=== PATIENT | male | born 1940 | race Caucasian/White ===

== ENCOUNTER 2021-09-15 09:50 | Emergency (ER) | payer BC, OTHER ==
--- OUTSIDE RECORDS SUMMARY | 2021-09-15 09:53 | XMS REPORT | Continuity of Care Document ---
:1940 Author Organization [facility] t Address [address] [place] [address] Care Team Providers Name Role Phone Sarai DEAN, H Attending Clinician Lab, Fam Pob I Attending Clinician Unavailable Bettye [employer]PER[employer] Attending Clinician BETTYE Attending Clinician Unavailable Doctor Unassigned, Name Attending Clinician Unavailable Payers Payer Name Policy Type Policy Number Effective Date Expiration Date S ource MEDICARE A B [id number] 2004 00:00:00 Problems Condition Condition Condition Status Onset Resolution Last Treating Co mments Source Name Details Category Date Date Treatment Clinician Date Influenza Influenza Disease Active Uni vers 1-30 ity of 00:00: [place] [address] Medical Branch Acute Acute Disease Active Univers respirator respirator 1-30 it y of y failure y failure 00:00: Farzaneh s with with 00 Medical hypoxia hypoxia Branch Shortness Shortness Disease Active Uni vers of breath of breath 1-25 ity of 00:00: [place] 00 Medical Branch S/P hip S/P hip Disease Active Univers hemiarthro hemiarthro 1-02 it y of plasty plasty 00:00: [place] 00 [facility] Branch Anemia, Anemia, Disease Active 2015-10 Univers posthemorr posthemorr 1-27 it y of ranjan wood[place], 00:00: [place] acute acute 00 [facility] Branch Urinary Urinary Disease Active 2015-10 Univers retention retention -27 ity of 00:00: [place] 00 Medical Branch Sundowning Sundowning Disease Active 2015-10 U nivers -27 ity of 00:00: [place] 00 [facility] Branch Hip Hip Disease Active 2015-10 Univers fracture fracture 1-18 ity of 00:00: [place] 00 [facility] Branch Allergies, Adverse Reactions, Alerts Allergy Allergy Status Severity Reaction(s) Onset Inactive Treating Comm ents Source Name Type Date Date Clinician NO KNOWN Drug Active Univers ALLERGIE Class ity of S [facility] Social History Social Habit Start Date Stop Date Quantity Comments Source Alcohol intake 2016-09-18 2016-09-18 [facility] 00:00:00 00:00:00 Medical Branch Sex [facility]igned At [birth year] [facility] 00:[facility]:00 00:00:00 Medical Branch Smoking Status Start Date Stop Date Source Current every day [facility] Ordered Filled Start Stop Current Ordering Indication Dosage Frequency Signature Comments Components Source Medication Medication Date Date Medication? Clinician (SIG) Name Name lisinopril Yes [id number] 10mg Take 2 Univers 5 mg tablet 1-30 tablets by it y of 00:00: mouth 2 [place] (two) Medical times [place] daily. fluticasone Yes [id number] 1{spray Use 1 Univers 50 1-30 } [place] in ity of mcg/actuati 00:00: each [place] on nasal 00 nostril Medical spray daily. Branch fluticasone Yes [id number] 2{puff} Inhale 2 Univers -salmeterol 1-30 Puffs 2 ity o f 115-21 00:00: (two) [place] mcg/actuati 00 times Medical on inhaler daily. Branch lisinopril Yes [id number] 10mg Take 2 Univers 5 mg tablet 1-30 tablets by it y of 00:00: mouth 2 [place] (two) Medical times Branch daily. fluticasone Yes [id number] 1{spray Use 1 Univers 50 1-30 } [place] in ity of mcg/actuati 00:00: each [place] on nasal 00 nostril Medical spray daily. Branch fluticasone Yes [id number] 2{puff} Inhale 2 Univers -salmeterol 1-30 Puffs 2 ity o f 115-21 00:00: (two) [place] mcg/actuati 00 times Medical on inhaler daily. Branch lisinopril Yes [id number] 10mg Take 2 Univers 5 mg tablet 1-30 tablets by it y of 00:00: mouth 2 [place] (two) Medical times [place] daily. fluticasone Yes [id number] 1{spray Use 1 Univers 50 1-30 } [place] in ity of mcg/actuati 00:00: each [place] on nasal 00 nostril Medical spray daily. Branch fluticasone Yes [id number] 2{puff} Inhale 2 Univers -salmeterol 1-30 Puffs 2 ity o f 115-21 00:00: (two) [place] mcg/actuati 00 times Medical on inhaler daily. [place] lisinopril Yes [id number] 10mg Take 2 Univers 5 mg tablet 1-30 tablets by it y of 00:00: mouth 2 [place] (two) Medical times [place] daily. fluticasone Yes [id number] 1{spray Use 1 Univers 50 1-30 } [place] in ity of mcg/actuati 00:00: each [place] on nasal 00 nostril Medical spray daily. [place] fluticasone Yes [id number] 2{puff} Inhale 2 Univers -salmeterol 1-30 Puffs 2 ity o f 115-21 00:00: (two) [place] mcg/actuati 00 times Medical on inhaler daily. [place] albuterol Yes [id number] 2{puff} Inhale 2 Univers (PROAIR 1-26 Puffs ity of HFA) 90 00:00: every 6 [place] mcg/actuati 00 (six) Medical on inhaler hours as Branc h needed for Wheezing or Shortness of Breath. albuterol Yes [id number] 2{puff} Inhale 2 Univers (PROAIR 1-26 Puffs ity of HFA) 90 00:00: every 6 [place] mcg/actuati 00 (six) Medical on inhaler hours as Branc h needed for Wheezing or Shortness of Breath. albuterol Yes [id number] 2{puff} Inhale 2 Univers (PROAIR 1-26 Puffs ity of HFA) 90 00:00: every 6 [place] mcg/actuati 00 (six) Medical on inhaler hours as Branc h needed for Wheezing or Shortness of Breath. albuterol Yes [id number] 2{puff} Inhale 2 Univers (PROAIR 1-26 Puffs ity of HFA) 90 00:00: every 6 [place] mcg/actuati 00 (six) Medical on inhaler hours as Branc h needed for Wheezing or Shortness of Breath. traMADOL Yes 50mg Take 1 Univers (ULTRAM) 50 4-14 tablet by ity of mg tablet 00:00: mouth [place] 00 every 6 Medical (six) Branch hours as needed for Pain (scale 4-6). traMADOL Yes 50mg Take 1 Univers (ULTRAM) 50 4-14 tablet by ity of mg tablet 00:00: mouth [place] 00 every 6 Medical (six) Branch hours as needed for Pain (scale 4-6). traMADOL 0 Yes 50mg Take 1 Univers (ULTRAM) 50 4-14 tablet by ity of mg tablet 00:00: mouth [place] 00 every 6 Medical (six) Branch hours as needed for Pain (scale 4-6). traMADOL Yes 50mg Take 1 Univers (ULTRAM) 50 4-14 tablet by ity of mg tablet 00:00: mouth [place] 00 every 6 Medical (six) Branch hours as needed for Pain (scale 4-6). bisacodyl 2015-10 Yes 10mg Take 2 Univer s (DULCOLAX) 1-28 tablets by ity of 5 mg EC 00:00: mouth once [place] tablet 00 daily as Medical needed for Branch Constipati on. docusate 2015-10 Yes 100mg Take 1 Univer s (COLACE) 1-28 capsule by ity o f 100 mg 00:00: mouth 2 [place] capsule 00 (two) Medical times Branch daily. clopidogrel 2015-10 Yes 75mg Take 1 Univ ers (PLAVIX) 75 1-28 tablet by ity of mg tablet 00:00: mouth [place] 00 daily. Medical Branch SERTraline 2015-10 Yes 25mg Take 1 Unive rs (ZOLOFT) 25 1-28 tablet by ity of mg tablet 00:00: mouth [place] 00 daily. Medical Branch aspirin 81 2015-10 Yes 81mg Take 1 Unive rs mg chewable 1-28 tablet by ity of tablet 00:00: mouth [place] 00 daily. Medical Branch acetaminoph 2015-10 Yes 650mg Take 2 Uni vers en 1-28 tablets by ity of (TYLENOL) 00:00: mouth [place] 325 mg 00 every 6 Medical tablet (six) Branch hours as needed for Pain (scale 1-3). atorvastati 2015-10 Yes 20mg Take 1 Univ ers n (LIPITOR) 1-28 tablet by ity of 20 mg 00:00: mouth at [place] tablet 00 bedtime. Medical Branch bisacodyl 2015-10 Yes 10mg Take 2 Univer s (DULCOLAX) 1-28 tablets by ity of 5 mg EC 00:00: mouth once [place] tablet 00 daily as Medical needed for Branch Constipati on. docusate 2015-10 Yes 100mg Take 1 Univer s (COLACE) 1-28 capsule by ity o f 100 mg 00:00: mouth 2 [place] capsule 00 (two) Medical times Branch daily. clopidogrel 2015-10 Yes 75mg Take 1 Univ ers (PLAVIX) 75 1-28 tablet by ity of mg tablet 00:00: mouth [place] 00 daily. Medical Branch SERTraline 2015-10 Yes 25mg Take 1 Unive rs (ZOLOFT) 25 1-28 tablet by ity of mg tablet 00:00: mouth [place] 00 daily. Medical Branch aspirin 81 2015-10 Yes 81mg Take 1 Unive rs mg chewable 1-28 tablet by ity of tablet 00:00: mouth [place] 00 daily. Medical Branch acetaminoph 2015-10 Yes 650mg Take 2 Uni vers en 1-28 tablets by ity of (TYLENOL) 00:00: mouth [place] 325 mg 00 every 6 Medical tablet (six) Branch hours as needed for Pain (scale 1-3). atorvastati 2015-10 Yes 20mg Take 1 Univ ers n (LIPITOR) 1-28 tablet by ity of 20 mg 00:00: mouth at [place] tablet 00 bedtime. Medical Branch bisacodyl 2015-10 Yes 10mg Take 2 Univer s (DULCOLAX) 1-28 tablets by ity of 5 mg EC 00:00: mouth once [place] tablet 00 daily as Medical needed for Branch Constipati on. docusate 2015-10 Yes 100mg Take 1 Univer s (COLACE) 1-28 capsule by ity o f 100 mg 00:00: mouth 2 [place] capsule 00 (two) Medical times Branch daily. clopidogrel 2015-10 Yes 75mg Take 1 Univ ers (PLAVIX) 75 1-28 tablet by ity of mg tablet 00:00: mouth [place] 00 daily. Medical Branch SERTraline 2015-10 Yes 25mg Take 1 Unive rs (ZOLOFT) 25 1-28 tablet by ity of mg tablet 00:00: mouth [place] 00 daily. Medical Branch aspirin 81 2015-10 Yes 81mg Take 1 Unive rs mg chewable 1-28 tablet by ity of tablet 00:00: mouth [place] 00 daily. Medical Branch acetaminoph 2015-10 Yes 650mg Take 2 Uni vers en 1-28 tablets by ity of (TYLENOL) 00:00: mouth [place] 325 mg 00 every 6 Medical tablet (six) Branch hours as needed for Pain (scale 1-3). atorvastati 2015-10 Yes 20mg Take 1 Univ ers n (LIPITOR) 1-28 tablet by ity of 20 mg 00:00: mouth at [place] tablet 00 bedtime. Medical Branch bisacodyl 2015-10 Yes 10mg Take 2 Univer s (DULCOLAX) 1-28 tablets by ity of 5 mg EC 00:00: mouth once [place] tablet 00 daily as Medical needed for Branch Constipati on. docusate 2015-10 Yes 100mg Take 1 Univer s (COLACE) 1-28 capsule by ity o f 100 mg 00:00: mouth 2 [place] capsule 00 (two) Medical times Branch daily. clopidogrel 2015-10 Yes 75mg Take 1 Univ ers (PLAVIX) 75 1-28 tablet by ity of mg tablet 00:00: mouth [place] 00 daily. Medical Branch SERTraline 2015-10 Yes 25mg Take 1 Unive rs (ZOLOFT) 25 1-28 tablet by ity of mg tablet 00:00: mouth [place] 00 daily. Medical Branch aspirin 81 2015-10 Yes 81mg Take 1 Unive rs mg chewable 1-28 tablet by ity of tablet 00:00: mouth [place] 00 daily. Medical Branch acetaminoph 2015-10 Yes 650mg Take 2 Uni vers en 1-28 tablets by ity of (TYLENOL) 00:00: mouth [place] 325 mg 00 every 6 Medical tablet (six) Branch hours as needed for Pain (scale 1-3). atorvastati 2015-10 Yes 20mg Take 1 Univ ers n (LIPITOR) 1-28 tablet by ity of 20 mg 00:00: mouth at [place] tablet 00 bedtime. Medical Branch Procedures This patient has no known procedures. Encounters Start End Encounter Admission Attending Care Care Encounter Source Date/Time Date/Time Type Type Clinicians Facility Department ID 2021-09-[address] [facility] Orthopedics [id number] 02:50:15 [facility] 2021-06-09 2021-06-09 Vinicius Moon [facility] [id number] Univers 00:00:00 00:00:00 (Out) Aubrey Coffman [id number] i ty of [facility] [id number] [place] [phone] [address] [employer] 2021-06-08 2021-06-08 Laboratory Lab, Adc Fam Pob I [facility] [id number] Univers 09:24:45 09:44:45 [facility] [id number] ity of [place] [id number] [place] as Professio [phone] [address] 2021-06-08 2021-06-08 Outpatient R [facility] [id number] Univers 09:20:00 09:20:00 [id number] ity of [facility] 2021-06-08 2021-06-08 Outpatient R BETTYE [facility] [id number] Univers 09:20:00 09:20:00 PRICILLA ity o f [facility] 2021-06-08 2021-06-08 Letter Doctor ADHIKARI [id number] Univers 00:00:00 00:00:00 (Out) Unassigned, FRANCOISE [id number] ity of [facility] [id number] [place] as [phone] [place] [address] Branch 2021-06-08 2021-06-08 Letter Doctor ADHIKARI [id number] Univers 00:00:00 00:00:00 (Out) Unassigned, FRANCOISE [id number] ity of [facility] [id number] [place] as [phone] [address] Results This patient has no known results.
[2021-09-15] MEDS ORDERED: HYDROCODONE/APAP 7.5/325 MG TAB ONE ×2 (10:05→12:22)
--- NOTE | 2021-09-15 11:04 | EDPHYS ---
Physician Documentation [facility] Name: Rahat [place] Age: 81 yrs Sex: Male : 1940 Arrival Date: 09/15/2021 Time: 09:52 Bed 20 Private MD: ED Physician Javier Robins HPI: 09/15 10:52 This 81 yrs old Male presents to ER via EMS with complaints of Arm pain. jr8 10:52 This is an 81-year-old male patient that presented to the emergency room via EMS after jr8 [place]. [place] cruise [place] and had imaging done confirming that he did have a proximal humeral fracture. Was splinted at that time and flown back to [place]. Patient came to emergency room today for further evaluation.. Historical: - Allergies: 10:45 No Known Allergies; sl2 - PMHx: 10:45 Anxiety; CVA; Depression; Hyperlipidemia; sl2 - Immunization history:: Adult Immunizations up to date, Client reports receiving the 2nd dose of the Covid vaccine. - Social history:: Smoking status: Patient reports the use of cigarette tobacco products, smokes one-half pack cigarettes per day. ROS: 10:52 Eyes: Negative for injury, pain, redness, and discharge, ENT: Negative for injury, jr8 pain, and discharge, Neck: Negative for injury, pain, and swelling, Cardiovascular: Negative for chest pain, palpitations, and edema, Respiratory: Negative for shortness of breath, cough, wheezing, and pleuritic chest pain, Abdomen/GI: Negative for abdominal pain, nausea, vomiting, diarrhea, and constipation, Back: Negative for injury and pain, Skin: Negative for injury, rash, and discoloration, Neuro: Negative for headache, weakness, numbness, tingling, and seizure. 10:52 MS/extremity: Positive for decreased range of motion, pain, tenderness, of the left arm. Exam: 10:52 Constitutional: This is a well developed, well nourished patient who is awake, alert, jr8 and in no acute distress. Head/Face: Normocephalic, atraumatic. Neck: Trachea midline, no thyromegaly or masses palpated, and no cervical lymphadenopathy. Supple, full range of motion without nuchal rigidity, or vertebral point tenderness. No Meningismus. Chest/axilla: Normal chest wall appearance and motion. Nontender with no deformity. No lesions are appreciated. Cardiovascular: Regular rate and rhythm with a normal S1 and S2. No gallops, murmurs, or rubs. Normal PMI, no JVD. No pulse deficits. Respiratory: Lungs have equal breath sounds bilaterally, clear to auscultation and percussion. No rales, rhonchi or wheezes noted. No increased work of breathing, no retractions or nasal flaring. Abdomen/GI: Soft, non-tender, with normal bowel sounds. No distension or tympany. No guarding or rebound. No evidence of tenderness throughout. Back: No spinal tenderness. No costovertebral tenderness. Full range of motion. Skin: Warm, dry with normal turgor. Normal color with no rashes, no lesions, and no evidence of cellulitis. Neuro: Awake and alert, GCS 15, oriented to person, place, time, and situation. Cranial nerves II-XII grossly intact. Motor strength 5/5 in all extremities. Sensory grossly intact. 10:52 Musculoskeletal/extremity: Extremities: grossly normal except: noted in the left arm: She has moderate tenderness to the proximal humeral region without obvious deformity. No other external signs of trauma. Patient remains in a coaptation splint. Patient is able to dorsiflex wrist and squeeze with his left hand. Sensation intact throughout with 2+ radial pulses on affected extremity.. Vital Signs: 09:46 BP 137 / 64; Pulse 74; Resp 18; Temp 98.1; Pulse Ox 88% on R/A; sl2 11:00 BP 128 / 76; Pulse 75; Resp 18; Temp 98.1; Pulse Ox 91% on 2 lpm NC; sl2 12:00 BP 128 / 66; Pulse 76; Resp 18; Temp 98.2; Pulse Ox 94% on 2 lpm NC; sl2 MDM: 09:55 Patient medically screened. jr8 10:52 Data reviewed: vital signs, nurses notes, radiologic studies, plain films. Data jr8 interpreted: Pulse oximetry: on 2L(s) per nasal canula, is 96 %. Interpretation: acceptable. Counseling: I had a detailed discussion with the patient and/or guardian regarding: the historical points, exam findings, and any diagnostic results supporting the discharge/admit diagnosis, radiology results, the need for outpatient follow up, a orthopedic surgeon, to return to the emergency department if symptoms worsen or persist or if there are any questions or concerns that arise at home. ED course: Discussed with patient that he needs to remain in the coaptation splint. No focal deficits neurologically at this time to indicate need for reduction or immediate surgery. Will refer him to orthopedics for further evaluation. Patient good with this at this time. Patient knows to come back if he were to worsen at any point time.. 09/15 10:02 Order name: XRAY Shoulder LEFT 2 view; Complete Time: 11:23 jr8 Administered Medications: 10:09 Drug: [place] (HYDROcodone-acetaminophen) (7.5 mg-325 mg) 1 tabs Route: PO; sl2 11:15 Follow up: Response: No adverse reaction; Pain is decreased sl2 12:30 Drug: [place] (HYDROcodone-acetaminophen) (7.5 mg-325 mg) 1 tabs Route: PO; sl2 12:32 Follow up: Response: No adverse reaction sl2 Disposition: 17:24 Co-signature as Attending Physician, Javier Robins MD I agree with the assessment and kdr plan of care. Disposition Summary: 09/15/21 11:03 Discharge Ordered Location: Home jr Problem: new jr8 Symptoms: have improved jr8 Condition: Stable jr8 Diagnosis - Fracture of upper end of humerus jr8 Followup: jr8 - With: Олег Contreras MD - When: 2 - 3 days - Reason: Recheck today's complaints, Continuance of care, Re-evaluation by your physician Discharge Instructions: - Discharge Summary Sheet jr8 - Humerus Fracture Treated With Immobilization jr8 Forms: - Medication Reconciliation Form jr8 - Thank You Letter jr8 - SBAR form em1 - Antibiotic Education jr8 - Prescription Opioid Use jr8 Prescriptions: - Tylenol-Codeine #3 300 mg-30 mg Oral - take 2 tablet by ORAL route every 8 hours As needed; 20 tablet; Refills: 0, jr8 Product Selection Permitted Signatures: Dispatcher [employer] EDMS Javier Robins MD MD kdr Roszak, Josh, PA PA jr8 Roxanna Rodriguez RN RN sl2 Corrections: (The following items were deleted from the chart) 11:11 10:45 Immunization history: Adult Immunizations up to date, Client reports receiving sl2 the 2nd dose of the Covid vaccine, sl2 10:45 Social history: Smoking status: Patient reports the use of cigarette tobacco sl2 products, smokes one-half pack cigarettes per day, sl2
--- NOTE | 2021-09-15 11:04 | ER ---
Nurse's Notes [facility] Name: Rahat Montana Age: 81 yrs Sex: Male : 1940 Arrival Date: 09/15/2021 Time: 09:52 Bed 20 Private MD: Diagnosis: Fracture of upper end of humerus Presentation: 09/15 09:46 Chief complaint: Patient states: Left arm fracture - Patient presented to ED via [address] [facility]. Report received that patient fell from his motorized wheel chair unto his left arm On Sunday on Sunday09/11/21 while on [place] cruise ship. Patient arrived home last PM, c/o severe left arm pain. Sling in place. Presents to ED for evaluation and orthopedic referral. 09:46 Coronavirus screen: Vaccine status: Patient reports receiving the 2nd dose of the covid sl2 vaccine. Ebola Screen: Patient negative for fever greater than or equal to 101.5 degrees Fahrenheit, and additional compatible Ebola Virus Disease symptoms Patient denies exposure to infectious person. Patient denies travel to an Ebola-affected area in the 21 days before illness onset. No symptoms or risks identified at this time. Initial Sepsis Screen: Does the patient meet any 2 criteria? No. Patient's initial sepsis screen is negative. Does the patient have a suspected source of infection? No. Patient's initial sepsis screen is negative. Risk Assessment: Do you want to hurt yourself or someone else? Patient reports no desire to harm self or others. Onset of symptoms was September 11, 2001. 09:46 Method Of Arrival: EMS: [place] [id number] 09:46 Acuity: RACHAEL 2 2 Triage Assessment: 10:45 General: Appears uncomfortable, unkempt, Behavior is calm, cooperative, appropriate for [facility] age, Reports Left arm pain. Pain: Complains of pain in left arm Pain currently is 8 out of 10 on a pain scale. at worst was 10 out of 10 on a pain scale. level that patient reports is acceptable is 3 out of 10 on a pain scale. Quality of pain is described as aching, sharp, piercing, Pain began suddenly, 4 days ago Alleviated by medications, Aggravated by increased activity, repositioning. EENT: No deficits noted. No signs and/or symptoms were reported regarding the EENT system. Neuro: No deficits noted. Level of Consciousness is awake, alert, obeys commands, Oriented to person, place, time, situation, Appropriate for age. Cardiovascular: No deficits noted. Reports. Respiratory: No deficits noted. Reports Airway is patent Trachea midline Respiratory effort is even, unlabored, Respiratory pattern is regular, symmetrical. GI: No deficits noted. No signs and/or symptoms were reported involving the gastrointestinal system. : No deficits noted. No signs and/or symptoms were reported regarding the genitourinary system. Derm: No deficits noted. No signs and/or symptoms reported regarding the dermatologic system. Musculoskeletal: Reports pain in left arm. Historical: - Allergies: 10:45 No Known Allergies; sl2 - PMHx: 10:45 Anxiety; CVA; Depression; Hyperlipidemia; sl2 - Immunization history:: Adult Immunizations up to date, Client reports receiving the 2nd dose of the Covid vaccine. - Social history:: Smoking status: Patient reports the use of cigarette tobacco products, smokes one-half pack cigarettes per day. Screenin:45 Abuse screen: Denies threats or abuse. Denies injuries from another. sl2 10:45 Nutritional screening: No deficits noted. Tuberculosis screening: No symptoms or risk sl2 factors identified. Never had TB. Possible symptoms: None Risk factors: None. Fall Risk None identified. No fall in past 12 months (0 pts). Secondary diagnosis (15 points) impaired mobility, CVA, No IV (0 pts). Ambulatory Aid- Crutches/Cane/Walker (15 pts). Gait- Impaired (20 pts.). Mental Status- Oriented to own ability (0 pts). Total Cherry Fall Scale indicates High Risk Score (45 or more points). 10:45 Fall Risk Total Cherry Fall Scale indicates High Risk Score (45 or more points). Fall sl2 prevention measures have been instituted. Side Rails Up X 2 Placed Close to Nursing Station Frequent Obs/Assessments Occuring. Vital Signs: 09:46 BP 137 / 64; Pulse 74; Resp 18; Temp 98.1; Pulse Ox 88% on R/A; sl2 11:00 BP 128 / 76; Pulse 75; Resp 18; Temp 98.1; Pulse Ox 91% on 2 lpm NC; sl2 12:00 BP 128 / 66; Pulse 76; Resp 18; Temp 98.2; Pulse Ox 94% on 2 lpm NC; sl2 ED Course: 09:52 Patient arrived in ED. em1 09:55 Carlos Oleary PA is PHCP. jr8 09:55 Javier Robins MD is Attending Physician. jr8 10:09 Roxanna Rodriguez, RN is Primary Nurse. sl2 10:45 Triage completed. sl2 10:45 Arm band placed on right wrist. sl2 10:45 Patient has correct armband on for positive identification. Bed in low position. Call sl2 light in reach. Side rails up X2. 10:45 No provider procedures requiring assistance completed. Patient did not have IV access sl2 during this emergency room visit. 10:56 XRAY Shoulder LEFT 2 view In Process Unspecified. EDMS 11:03 Олег Contreras MD is Referral Physician. jr8 Administered Medications: 10:09 Drug: [place] (HYDROcodone-acetaminophen) (7.5 mg-325 mg) 1 tabs Route: PO; sl2 11:15 Follow up: Response: No adverse reaction; Pain is decreased sl2 12:30 Drug: [place] (HYDROcodone-acetaminophen) (7.5 mg-325 mg) 1 tabs Route: PO; sl2 12:32 Follow up: Response: No adverse reaction sl2 Outcome: 11:03 Discharge ordered by . jr8 12:31 Discharged to home via ambulance. sl2 12:31 Condition: good 12:31 Condition: stable 12:31 Discharge instructions given to patient, significant other, Instructed on discharge instructions, follow up and referral plans. no drinking with medication, medication usage, Demonstrated understanding of instructions, follow-up care, medications, Prescriptions given X 1. 12:32 Patient left the ED. sl2 Signatures: Dispatcher [employer] EDMS Flavio Jackson em1 Carlos Oleary PA PA jr8 Roxanna Rodriguez, RN RN sl2 Corrections: (The following items were deleted from the chart) 11:11 10:45 Immunization history: Adult Immunizations up to date, Client reports receiving sl2 the 2nd dose of the Covid vaccine, sl2 11:11 10:45 Social history: Smoking status: Patient reports the use of cigarette tobacco sl2 products, smokes one-half pack cigarettes per day, sl2 11:12 10:45 General: Appears uncomfortable, unkempt, Behavior is calm, cooperative, sl2 appropriate for age, Reports Left arm pain sl2 11:12 10:45 Pain: Complains of pain in left arm Pain currently is 8 out of 10 on a pain sl2 scale. at worst was 10 out of 10 on a pain scale. level that patient reports is acceptable is 3 out of 10 on a pain scale. Quality of pain is described as aching, sharp, piercing, Pain began suddenly, 4 days ago Alleviated by medications, Aggravated by increased activity, repositioning, sl2
--- NOTE | 2021-09-15 11:08 | RAD REPORT ---
EXAM DESCRIPTION: RAD - Shoulder Left 2 View - 09/15/2021 10:56 am CLINICAL HISTORY: DEFORMITY COMPARISON: No comparisons FINDINGS: Oblique fracture is seen of the proximal aspect of the left humerus. The bones are deminer alized. No significant bony bridging is evident. Mild callus formation is seen along the fracture sit e medially.
[2021-09-15 12:39] VITALS: BP 128/66; TEMP 98.2; O2SAT 94
== END 2021-09-15 12:32 | disposition home or self-care (01) ==
LOC: ER 09:50
DX: S42.202A Unspecified fracture of upper end of left humerus, initial encounter for closed fracture (principal); W19.XXXA Unspecified fall, initial encounter; Y92.814 Boat as the place of occurrence of the external cause; F17.210 Nicotine dependence, cigarettes, uncomplicated
CPT/HCPCS: 99284

== ENCOUNTER 2022-08-20 16:11 | Emergency (ER) | payer OTHER ==
--- OUTSIDE RECORDS SUMMARY | 2022-08-20 16:16 | XMS REPORT | Continuity of Care Document ---
:1940 Author Organization [facility] t Address [address] [place] [address] Care Team Providers Name Role Phone Pcp, Patient Does Not Have A Primary Care Physician [id number] JORDAN SHERMAN Attending Clinician Unavailable Kartik Blanton RN Attending Clinician Unavailable JOHAN KRUSE Attending Clinician Unavailable Angela Chavira DO Attending Clinician Leandro Grossman MD Attending Clinician Johan Krsue MD Attending Clinician Marisela Ignacio MA Attending Clinician Unavailable Carrington Ayala MD Attending Clinician Ursula Keen Attending Clinician Unavailable Aubrey Moon MD Attending Clinician Lab, [facility] Attending Clinician Unavailable Natalie Chen Attending Clinician NATALIE WEN Attending Clinician Unavailable Doctor Unassigned, [place] Attending Clinician Unavailable JOHAN KRUSE Admitting Clinician Unavailable Johan Kruse MD Admitting Clinician Payers Payer Name Policy Type Policy Number Effective Date Expiration Date S [facility] MEDICARE PART A \\T\\ [id number] 2004 B 00:00:00 SHIKHA [id number] 2018 BENEFITS 00:00:00 MEDICARE A B [id number] 2004 00:00:00 Problems Condition Condition Condition Status Onset Resolution Last Treating Co mments Source Name Details Category Date Date Treatment Clinician Date Paroxysmal Paroxysmal Disease Active 2021-10 U nivers atrial atrial 0-16 ity of fibrill[place] fibr[place] with on with 00 Medical RVR RVR Branch E44.0 E44.0 Disease Active 2021-10 Univers Moderate Moderate 0-14 ity of protein protein 00:00: [place] calorie calorie 00 Medical malnutriti malnutriti Br anch on on COPD COPD Disease Active 2021-10 Univers exacerbati exacerbati 0-10 it y of on on 00:00: [place] 00 Medical Branch UTI UTI Disease Active 2021-10 Univers (urinary (urinary 0-10 ity of tract tract 00:00: [place] infection) infection) 00 Me dical Branch Troponin I Troponin I Disease Active 2021-10 U nivers above above 0-10 ity of reference reference 00:00: Farzaneh newsome range range 00 Medical Branch Acute on Acute on Disease Active 2021-10 Unive rs 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 00:00: Farzaneh newsome congestive congestive 00 Me dical heart heart Branch failure failure JOSEPH (acute JOSEPH (acute Disease Active 2021-10 U nivers kidney kidney 0-10 ity of injury) injury) 00:00: [place] 00 Medical Branch Hypercapni Hypercapni Disease Active 2021-10 U nivers a a 0-09 ity of 00:00: [place] 00 Medical Branch Closed Closed Disease Active 2020-10 Methodi fracture fracture 1-24 st of left of left 00:00: [facility] proximal proximal 00 l humerus humerus Influenza Influenza Disease Active Uni vers 1-30 ity of 00:00: [place] 00 Medical Branch Acute Acute Disease Active Univers respirator respirator 1-30 it y of y failure y failure 00:00: Farzaneh newsome with with 00 Medical hypoxia hypoxia Branch Shortness Shortness Disease Active Uni vers of breath of breath 1-25 ity of 00:00: [place] 00 Medical Branch S/P hip S/P hip Disease Active Univers hemiarthro hemiarthro 1-02 it y of plasty plasty 00:00: [place] 00 [facility] Anemia, Anemia, Disease Active 2015-10 Univers posthemorr posthemorr 11-24 it y of ranjan woodruff, 00:00: [place] acute acute [facility] Urinary Urinary Disease Active 2015-10 Univers retention retention 11-24 ity of 00:00: [place] 00 Medical Branch Sundowning Sundowning Disease Active 2015-10 U nivers 11-24 ity of 00:00: [place] [facility] Hip Hip Disease Active 2015-10 Univers fracture fracture 11-15 ity of 00:00: [place] 00 [facility] Allergies, Adverse Reactions, Alerts Allergy Allergy Status Severity Reaction(s) Onset Inactive Treating Comm ents Source Name Type Date Date Clinician NO KNOWN Drug Active Univers ALLERGIE Class ity of S [facility] Social History Social Habit Start Date Stop Date Quantity Comments Source History of Cigarette Smoker Universi ty of tobacco use [facility] Exposure to 2022-07-27 2022-08-06 Unable to assess Univers ity of SARS-CoV-2 00:00:00 09:43:00 [facility] (event) [place] Alcohol intake 2022-08-06 2022-08-06 Ex-drinker University 00:00:00 00:00:00 (finding) [facility] Tobacco use and 2022-08-06 2022-08-06 Smokeless tobacco Un iversity of exposure 00:00:00 00:00:00 non-user [facility] Tobacco Comment 2022-08-06 2022-08-06 Last cigarette 1 Uni versity of 00:00:00 00:00:00 week ago due [place] Medic l being sick Branch Sex Ass[birth year] [facility] 00:00:00 00:00:00 Smoking Status Start Date Stop Date Source Tobacco smoking consumption [facility] unknown Smokes tobacco daily 2022-08-06 00:00:00 Univers ity of [facility] Medications Ordered Filled Start Stop Current Ordering Indication Dosage Frequency Signature Comments Components Source Medication Medication Date Date Medication? Clinician (SIG) Name Name furosemide 2021-10- Yes [id number] 20mg Take 1 Univers 20 mg 0-20 11-20 tablet by ity of tablet 00:00: 05:59 mouth in [place] 00 :00 the Medical [facility] for 30 days. spironolact 2021-10- Yes [id number] 25mg Take 1 Univers one 25 mg 0-20 11-20 tablet by ity of tablet 00:00: 05:59 mouth in [place] 00 :00 the Medical morning Branch for 30 days. furosemide 2021-10- Yes [id number] 20mg Take 1 Univers 20 mg 0-20 11-20 tablet by ity of tablet 00:00: 05:59 mouth in [place] 00 :00 the Medical morning Branch for 30 days. spironolact 2021-10- Yes [id number] 25mg Take 1 Univers one 25 mg 0-20 11-20 tablet by ity of tablet 00:00: 05:59 mouth in [place] 00 :00 the Medical morning Branch for 30 days. Coenzyme 2021-10 Yes 1{capsu Take 1 Univ ers Q10 200 mg 0-19 le} capsule by ity of Cap 16:11: mouth [place] 53 daily. Medical Branch foLIC acid 2021-10 Yes 1mg Take 1 mg Un vera 1 mg tablet 0-19 by mouth ity of 16:11: in the [place] 53 morning. Medical Branch levalbutero 2021-10 Yes 1{puff} Inhale 1 Univers l 45 0-19 Puff every ity of mcg/actuati 16:11: 4 (four) [place] on inhaler 53 hours as Medic al needed for Branch Wheezing. Vitamin 2021-10 Yes 1000ug Take 1,000 Un vera B-12 1,000 0-19 mcg by ity of mcg tablet 16:11: mouth in [place] as 53 the Medical morning. Branch Coenzyme 2021-10 Yes 1{capsu Take 1 Univ ers Q10 200 mg 0-19 le} capsule by ity of Cap 16:11: mouth [place] 53 daily. Medical Branch foLIC acid 2021-10 Yes 1mg Take 1 mg Un vera 1 mg tablet 0-19 by mouth ity of 16:11: in the [place] 53 morning. Medical Branch levalbutero 2021-10 Yes 1{puff} Inhale 1 Univers l 45 0-19 Puff every ity of mcg/actuati 16:11: 4 (four) [place] on inhaler 53 hours as Medic al needed for Branch Wheezing. Vitamin 2021-10 Yes 1000ug Take 1,000 Un vera B-12 1,000 0-19 mcg by ity of mcg tablet 16:11: mouth in [place] 53 the Medical morning. Branch HYDROmorpho 2021-10 Yes [id number] 1mg Take 0.5 Un vera ne 2 mg 0-19 tablets by ity of tablet 00:00: mouth [place] 00 every 8 Medical (eight) Branch hours. Indication s: acute pain ipratropium 2021-10 Yes 3mL Inhale 3 Un vera -albuteroL 0-19 mL every 4 ity of 0.5 mg-3 00:00: (four) [place] mg(2.5 mg 00 hours. Medical base)/3 mL Branch nebulizer solution polyethylen 2021-10 Yes [id number] 17g Take 1 Univers e glycol 0-19 Packet by ity of 3350 17 00:00: mouth in [place] gram powder 00 the Medical morning Branch and 1 Packet in the evening. sennosides- 2021-10 Yes [id number] 1{tbl} Take 1 Univers docusate 0-19 tablet by ity of sodium 00:00: mouth in [place] 8.6-50 mg 00 the Medical per tablet morning Branch and 1 tablet in the evening. traMADoL 2021-10 Yes [id number] 100mg Take 100 Univ ers 100 mg Tab 0-19 mg by ity of 00:00: mouth [place] 00 every 8 Medical (eight) Branch hours. Indication s: acute pain traZODone 2021-10 Yes [id number] 50mg Take 1 U nivers 50 mg 0-19 tablet by ity of tablet 00:00: mouth 3 [place] 00 (three) Medical times Branch daily as needed for Insomnia (agitation ). nicotine 21 2021-10 Yes [id number] 1{patch Apply 1 Univers mg/24 hr 0-19 } Patch to ity of patch 00:00: area(s) [place] 00 every 24 Medical (twenty-fo Branch ur) hours. HYDROmorpho 2021-10 Yes [id number] 1mg Take 0.5 Un vera ne 2 mg 0-19 tablets by ity of tablet 00:00: mouth [place] 00 every 8 Medical (eight) Branch hours. Indication s: acute pain ipratropium 2021-10 Yes 3mL Inhale 3 Un vera -albuteroL 0-19 mL every 4 ity of 0.5 mg-3 00:00: (four) [place] mg(2.5 mg 00 hours. Medical base)/3 mL Branch nebulizer solution polyethylen 2021-10 Yes [id number] 17g Take 1 Univers e glycol 0-19 Packet by ity of 3350 17 00:00: mouth in [place] gram powder 00 the Medical morning Branch and 1 Packet in the evening. sennosides- 2021-10 Yes [id number] 1{tbl} Take 1 Univers docusate 0-19 tablet by ity of sodium 00:00: mouth in [place] 8.6-50 mg 00 the Medical per tablet morning Branch and 1 tablet in the evening. traMADoL 2021-10 Yes [id number] 100mg Take 100 Univ ers 100 mg Tab 0-19 mg by ity of 00:00: mouth [place] 00 every 8 Medical (eight) Branch hours. Indication s: acute pain traZODone 2021-10 Yes [id number] 50mg Take 1 U nivers 50 mg 0-19 tablet by ity of tablet 00:00: mouth 3 [place] 00 (three) Medical times Branch daily as needed for Insomnia (agitation ). nicotine 21 2021-10 Yes [id number] 1{patch Apply 1 Univers mg/24 hr 0-19 } Patch to ity of patch 00:00: area(s) [place] 00 every 24 Medical (twenty-fo Branch ur) hours. SERTraline 2021-10- Yes [id number] 50mg Take 1 Univers 50 mg 0-19 11-19 tablet by ity of tablet 00:00: 05:59 mouth in [place] 00 :00 the [facility] morning Branch for 30 days. apixaban 5 2021-10- Yes [id number] 5mg Take 1 Univ ers mg tablet 0-19 11-19 tablet by ity of 00:00: 05:59 mouth in [place] 00 :00 the Medical morning Branch and 1 tablet in the evening. Do all this for 30 days. Indication s: atrial fibrillati on metoprolol 2021-10- Yes [id number] 12.5mg Take 0.5 Univers tartrate 25 0-19 11-19 tablets by i ty of mg tablet 00:00: 05:59 mouth in [place] as 00 :00 the Medical morning Branch and 0.5 tablets in the evening. Do all this for 30 days. QUEtiapine 2021-10- Yes [id number] 25mg Take 1 Univers 25 mg 0-19 11-19 tablet by ity of tablet 00:00: 05:59 mouth at [place] 00 :00 bedtime Medical for 30 Branch days. SERTraline 2021-10- Yes [id number] 50mg Take 1 Univers 50 mg 0-19 11-19 tablet by ity of tablet 00:00: 05:59 mouth in [place] 00 :00 the Medical morning Branch for 30 days. apixaban 5 2021-10- Yes [id number] 5mg Take 1 Univ ers mg tablet 0-19 11-19 tablet by ity of 00:00: 05:59 mouth in [place] 00 :00 the Medical morning Branch and 1 tablet in the evening. Do all this for 30 days. Indication s: atrial fibrillati on metoprolol 2021-10- Yes [id number] 12.5mg Take 0.5 Univers tartrate 25 0-19 11-19 tablets by i ty of mg tablet 00:00: 05:59 mouth in [place] as 00 :00 the Medical morning Branch and 0.5 tablets in the evening. Do all this for 30 days. QUEtiapine 2021-10- Yes [id number] 25mg Take 1 Univers 25 mg 0-19 11-19 tablet by ity of tablet 00:00: 05:59 mouth at [place] 00 :00 [facility] Medical for 30 Branch days. cyclobenzap 2021-10- Yes [id number] 5mg Take 1 Univers rine 5 mg 0-19 10-30 tablet by ity of tablet 00:00: 04:59 mouth 3 [place] 00 :00 (three) Medical times [place] daily as needed for Muscle Spasms for up to 10 days. cyclobenzap 2021-10- Yes [id number] 5mg Take 1 Univers rine 5 mg 0-19 10-30 tablet by ity of tablet 00:00: 04:59 mouth 3 [place] 00 :00 (three) Medical times [place] daily as needed for Muscle Spasms for up to 10 days. HYDROmorpho 2021-10- No 1mg 1 mg, Slow Univers ne 0-18 10-18 IV Push, ity of (DILAUDID) 22:30: 21:43 ONCE, 1 [place] as injection 1 00 :00 dose, On Medi radha mg e Branch 08/15/22 at 1730, Routine
Use approved by (Faculty): ADC PROVIDER apixaban 2021-10 Yes 5mg 5 mg, Univers (ELIQUIS) 0-18 Oral, BID, ity of tablet 5 mg 01:00: First dose [place] 00 on [facility] 08/14/22 Branch at 2000, Until Discontinu ed, Routine
Indicatio ns: Non-Valvul ar Atrial Fibrillati on enoxaparin 2021-10- No 1mg/kg 70 mg Uni vers (LOVENOX) 0-17 17 (rounded ity o f injection 01:00: 18:47 from 69 mg [place] 70 mg 00 :26 = 1 mg/kg Medical ?69 kg), [facility], Q12H, First dose (after last modificati on) on [place] 08/13/22 at 2000, Until Discontinu ed, Routine metoprolol 2021-10 Yes 12.5mg 12.5 mg, U nivers tartrate 0-16 Oral, BID, ity o f (LOPRESSOR) 17:00: First dose [place] tablet 12.5 00 on [place] Medica l mg 08/13/22 Branch at 1200, Until Discontinu ed, Routine lactulose 2021-10 Yes 30mL 30 mL, Univer s (CEPHULAC) 0-16 Oral, ity of solution 30 13:57: BIDPRN, [place] as mL 16 Starting Medical on [facility] 08/13/22 at 0857, Until Discontinu ed, Routine, Constipati on diltiazem 2021-10- No 30mg 30 mg, Unive rs (CARDIZEM) 0-16 10-16 Oral, BID, it y of tablet 30 13:00: 15:02 First dose [place] mg 00 :38 on [facility] 08/13/22 Branch at 0800, Until Discontinu ed, Routine digoxin 2021-10 No 500ug 500 mcg, Univ ers (LANOXIN) 0-16 -16 Intravenou ity of injection 09:30: 08:43 s, ONCE, 1 [place] 500 mcg 00 :00 dose, On [facility] 08/13/22 at 0430, Routine diltiazem 2021-10- No 10mg 10 mg, Unive rs (CARDIZEM 0-16 10-16 Slow IV ity of IV) 09:30: 08:41 Push, [place] injection 00 :00 ONCE, 1 Medical 10 mg dose, On Branch [place] 08/13/22 at 0430, Routine
store team member approving Restricted medication : LEANDRO GROSSMAN enoxaparin 2021-10- No 1mg/kg 70 mg Uni vers (LOVENOX) 0-16 08-13 (rounded ity o f injection 09:02: 14:20 from 69 mg [place] 70 mg 22 :11 = 1 mg/kg Medical ?69 kg), Branch [facility], Q24H, First dose (after last modificati on) on [place] 08/13/22 at 0415, Until Discontinu ed, Routine furosemide 2021-10 Yes 20mg 20 mg, Unive rs (LASIX) 0-15 Oral, ity of tablet 20 14:00: DAILY, [place] mg 00 First dose Medical (after Branch last modificati on) on 08/12/22 at 0900, Until Discontinu ed, Routine predniSONE 2021-10- No 40mg 40 mg, Univ ers (DELTASONE) 0-15 08-14 Oral, ity of tablet 40 14:00: 13:05 DAILY, 3 [place] as mg 00 :00 doses, Medical First dose Branch (after last modificati on) on 08/12/22 at 0900, Last dose on 08/14/22 at 0900, Routine QUEtiapine 2021-10 Yes 25mg 25 mg, Unive rs (SEROQUEL) 0-15 Oral, QHS, ity of tablet 25 02:00: First dose [place] mg 00 on [facility] 08/11/22 Branch at 2100, Until Discontinu ed, Routine spironolact 2021-10 Yes 25mg 25 mg, Univ ers one 0-14 Oral, ity of (ALDACTONE) 14:00: DAILY, [place] tablet 25 00 First dose Medi radha mg on Fri Branch 08/11/22 at 0900, Until Discontinu ed, Routine sennosides- 2021-10 Yes 1{tbl} 1 tablet, Univers docusate 0-14 Oral, BID, ity o f sodium 13:00: First dose [place] (SENOKOT-S) 00 on Sun Medica l 8.6-50 mg 08/11/22 Branch per tablet at 0800, 1 tablet Until Discontinu ed, Routine traZODone 2021-10 Yes 50mg 50 mg, Univer s (DESYREL) 0-14 Oral, ity of tablet 50 11:05: TIDPRN, [place] mg 32 Starting Medical on [facility] Branch 08/11/22 at 0605, Until Discontinu ed, Routine, Insomnia, agitation QUEtiapine 2021-10 No 12.5mg 12.5 mg, Univers (SEROQUEL) 0-14 10-14 Oral, ONCE it y of tablet 12.5 06:00: 05:09 NOW, 1 [place] as mg 00 :00 dose, On Medical [facility] Branch 08/11/22 at 0100, Routine amLODIPine 2021-10 No 5mg 5 mg, Unive rs (NORVASC) 0-16 Oral, ity of tablet 5 mg 20:15: 09:28 DAILY, [place] 00 :45 First dose Medical on [facility] Branch 08/10/22 at 1515, Until Discontinu ed, Routine acetaZOLAMI 2021-10 No 250mg 250 mg, U nivers DE (DIAMOX) 0-10 08- Oral, ity of tablet 250 17:00: 16:46 ONCE, 1 [place] as mg 00 :00 dose, On Medical [facility] Branch 08/10/22 at 1200, Routine iron 2021-10 No 200mg 200 mg, IV Unive rs sucrose 0-10 08-17 Infusion, ity of (VENOFER) 15:00: 18:37 DAILY, [place] 200 mg in 00 :00 Administer Medi radha NaCl 0.9% over 2.5 Branch (NS) 100 mL Hours, infusion First dose on [facility] 08/10/22 at 1000, For 5 doses cyclobenzap 2021-10 Yes 5mg 5 mg, Unive rs rine 0-13 Oral, TID, ity of (FLEXERIL) 14:15: First dose [place] tablet 5 mg 00 (after Medica l last Branch modificati on) on [facility] 08/10/22 at 0915, Until Discontinu ed, Routine predniSONE 2021-10 No 40mg 40 mg, Univ ers (DELTASONE) 0-13 10-14 Oral, ity of tablet 40 14:00: 16:57 DAILY, [place] mg 00 :40 First dose Medical (after Branch last modificati on) on [facility] 08/10/22 at 0900, Until Discontinu ed, Routine furosemide 2021-10 No 20mg 20 mg, Univ ers (LASIX) 0-13 10-14 Oral, ity of tablet 20 14:00: 17:06 QAM+PM, [place] mg 00 :57 First dose Medical on [facility] Branch 08/10/22 at 0900, Until Discontinu ed, Routine cyclobenzap 2021-10 No 2.5mg 2.5 mg, U nivers rine 0-12 -13 Oral, TID, ity of (FLEXERIL) 22:00: 14:02 First dose [place] tablet 2.5 00 :07 on Sun Medical mg 08/09/22 Branch at 1700, Until Discontinu ed, Routine polyethylen 2021-10 Yes 17g 17 g, Unive rs e glycol 0-12 Oral, BID, ity o f 3350 powder 21:15: First dose [place] 17 g 00 on [facility] Medical 08/09/22 Branch at 1615, Until Discontinu ed, Routine HYDROmorpho 2021-10 Yes 1mg 1 mg, Unive rs ne 0-12 Oral, Q8H, ity of (DILAUDID) 21:15: First dose [place] tablet 1 mg 00 on [facility] Medica l 08/09/22 Branch at 1615, Until Discontinu ed, Routine traMADoL 2021-10 Yes 100mg 100 mg, Unive rs (ULTRAM) 0-12 Oral, Q8H, ity o f tablet 100 21:15: First dose [place] mg 00 (after Medical last Branch modificati on) on Sun08/09/22 at 1615, Until Discontinu ed, Routine acetaminoph 2021-10 Yes 500mg 500 mg, Un vera en 0-12 Oral, Q6H, ity of (TYLENOL) 21:15: First dose [place] tablet 500 00 on [facility] Medical mg 08/09/22 Branch at 1615, Until Discontinu ed, Routine sennosides 2021-10 No 8.6mg 8.6 mg, Un vera (SENOKOT) 0-12 10-14 Oral, BID, ity of tablet 8.6 21:15: 11:13 First dose [place] mg 00 :14 on Sun Medical 08/09/22 Branch at 1615, Until Discontinu ed, Routine HYDROmorpho 2021-10 Yes .5mg 0.5 mg, Uni vers ne 0-12 Slow IV ity of (DILAUDID) 20:57: Push, [place] injection 15 Q3HPRN, Medical 0.5 mg Starting Branch on Sun08/09/22 at 1557, Until Discontinu ed, Routine, Pain (scale 7-10)
U se approved by (Faculty): ADC PROVIDER sodium 2021-10 Yes 4mL 4 mL, Univers chloride 7% 0-12 Inhalation it y of (HYPER-MATHEUS) 14:45: , BID, [place] nebulizer 00 First dose Medi radha solution 4 on Sun Branch mL 08/09/22 at 0945, Until Discontinu ed, Routine KCL 20 2021-10 No 20meq 20 mEq, Univer s mEq/15 mL 0-12 10-13 Oral, ity of solution 20 14:00: 14:49 DAILY, [place] as mEq 00 :54 First dose Medical (after Branch last reorder) on Sun08/09/22 at 0900, Until Discontinu ed, Routine predniSONE 2021-10 No 50mg 50 mg, Univ ers (DELTASONE) 0-12 10-12 Oral, ity of tablet 50 14:00: 21:43 DAILY, [place] mg 00 :02 First dose Medical on [place] Branch 08/09/22 at 0900, Until Discontinu ed, Routine furosemide 2021-10- No 40mg 40 mg, Univ ers (LASIX) 0-12 10-12 Slow IV ity of injection 01:00: 21:37 Push, [place] 40 mg 00 :39 Q12H, Medical First dose Branch (after last modificati on) on Sun08/08/22 at 2000, Until Discontinu ed, Routine cefTRIAXone 2021-10 No 1000mg 1,000 mg, Univers (ROCEPHIN) 0-12 10-17 IV ity of 1,000 mg in 00:15: 14:17 Piggyback, [place] NaCl 0.9% 00 :00 DAILY, 7 Medica l (NS) 50 mL doses, Branch MINI-BAG First dose on Sun08/08/22 at 1915, Last dose on Sun08/14/22 at 0900, Administer over 30 Minutes, 50 mL
Reas on for Anti-Infec tive: Empiric Therapy for Suspected Infection< br>Empiric Therapy Site: Respirator y
Durat ion of therapy: 72 hours KCL 20 2021-10- No 20meq 20 mEq, Univer s mEq/15 mL 08-08 Oral, ity of solution 20 18:30: 17:59 ONCE, 1 [place] mEq 00 :00 dose, On Medical [facility] 08/08/22 at 1330, Routine lidocaine 2021-10 No 1{patch 1 Patch, Univers (LIDODERM) 08-08 } Topical, ity of 5 % (700 08:15: 19:28 Administer [place] mg/patch) 00 :00 over 12 Medical patch 1 Hours, Branch Patch ONCE, 1 dose, On Sun08/08/22 at 0315, Routine haloperidol 2021-10 No 5mg 5 mg, Slow Univers lactate 08-08 IV Push, ity of (HALDOL) 05:30: 04:52 ONCE, 1 [place] injection 5 00 :00 dose, On Medi radha mg [facility] 08/08/22 at 0030, Routine cyclobenzap 2021-10- No 5mg 5 mg, Univ ers rine 08-09 Oral, ity of (FLEXERIL) 04:34: 21:05 TIDPRN, [place] as tablet 5 mg 44 :10 Starting Medi radha on Sun [place] 08/07/22 at 2334, Until Sun08/09/22 at 1605, Routine, Muscle Spasms traMADoL 2021-10- No 50mg 50 mg, Univer s (ULTRAM) 008-09 Oral, ity of tablet 50 04:34: 21:04 Q8HPRN, [place] mg 30 :33 Starting Medical on Sun [place] 08/07/22 at 2334, Until Sun08/09/22 at 1604, Routine, Pain (scale 4-6) SERTraline 2021-10 Yes 25mg 25 mg, Unive rs (ZOLOFT) 0-10 Oral, ity of tablet 25 14:00: DAILY, [place] mg 00 First dose Medical on [facility] 08/07/22 at 0900, Until Discontinu ed, Routine clopidogreL 2021-10 Yes 75mg 75 mg, Univ ers (PLAVIX) 75 0-10 Oral, ity of mg tablet 14:00: DAILY, [place] 75 mg 00 First dose Medical on [facility] 08/07/22 at 0900, Until Discontinu ed, Routine aspirin 2021-10 No 81mg 81 mg, Univers chewable 0-10 10-16 Oral, ity of tablet 81 14:00: 09:00 DAILY, [place] mg 00 :14 First dose Medical on [facility] 08/07/22 at 0900, Until Discontinu ed, Routine methylPREDN 2021-10 No 40mg 40 mg, Uni vers ISolone sod 0-10 10-12 Intravenou i ty of succ 13:00: 00:05 s, Q12H, [place] (SOLU-MEDRO 00 :31 First dose Me dical L (PF)) on [facility] injection 08/07/22 40 mg at 0800, Until Discontinu ed, 1 mL LORazepam 2021-10 No .5mg 0.5 mg, Univ ers (ATIVAN) 0-10 10-10 Slow IV ity of injection 08:30: 09:46 Push, [place] 0.5 mg 00 :00 ONCE, 1 Medical dose, On Branch [facility] 08/07/22 at 0330, Routine morpHINE (2 2021-10 No 2mg 2 mg, Slow Univers mg/mL) 0-10 10-12 IV Push, ity of injection 2 07:32: 19:00 Q4HPRN, [place] mg 07 :39 Starting Medical on [facility] 08/07/22 at 0232, Until Sun08/09/22 at 1400, Routine, Pain (scale 7-10) azithromyci 2021-10 No 500mg 500 mg, IV Univers n 0-10 10-12 Piggyback, ity of (ZITHROMAX) 06:15: 15:15 Q24H ABX, [place] 500 mg in 00 :33 6 doses, Medica l NaCl 0.9% First dose Bran ch (NS) 250 mL on Sun VIAL-MATE 10/10/22 IV at 0115, piggyback Last dose on 08/12/22 at 0115, Administer over 60 Minutes, 250 mL
Reas on for Anti-Infec tive: Empiric Therapy for Suspected Infection< br>Empiric Therapy Site: Respirator y
Durat ion of therapy: 5 days haloperidol 2021-10 No 5mg 5 mg, Slow Univers lactate 0-10 10-10 IV Push, ity of (HALDOL) 06:00: 05:49 ONCE, 1 [place] injection 5 00 :00 dose, On Medi radha mg [facility] 08/07/22 at 0100, Routine methylpredn 2021-10 No 125mg 125 mg, U nivers isolone sod 0-10 10-10 Intravenou i ty of succ 05:45: 05:49 s, ONCE, 1 [place] (SOLU-MEDRO 00 :00 dose, On Medi radha L) [facility] injection 08/07/22 125 mg at 0045, 2 mL budesonide 2021-10 Yes .5mg 0.5 mg, Univ ers (PULMICORT 0-10 Inhalation ity of RESPULE) 05:00: , BID, [place] nebulizer 00 First dose Medi ardha solution on [facility] 0.5 mg 08/07/22 at 0000, Until Discontinu ed, Routine ipratropium 2021-10 Yes 3mL 3 mL, Unive rs -albuteroL 0-10 Inhalation ity of (DUONEB) 05:00: , Q4H, [place] 0.5 mg-3 00 First dose Medic al mg(2.5 mg on [facility] base)/3 mL 08/07/22 nebulizer at 0000, solution 3 Until mL Discontinu ed, Routine atorvastati 2021-10 Yes 20mg 20 mg, Univ ers n (LIPITOR) 0-10 Oral, QHS, it y of tablet 20 02:00: First dose [place] mg 00 on [facility] 08/06/22 at Branch 2100, Until Discontinu ed, Routine Fluticasone 2021-10- No 1{puff} 1 Puff, Univers -Salmeterol 0-10 10-10 Inhalation i ty of (ADVAIR) 01:00: 04:48 , Q12H, [place] 100-50 00 :02 First dose Medical mcg/dose on [place] Branch inhalation 08/06/22 at disk 1 Puff 1999, Until Discontinu ed nicotine 2021-10 Yes 1{patch 1 Patch, Un vera (NICODERM) 0-10 } Topical, ity o f 21 mg/24 hr 00:00: Administer [place] patch 1 00 over 24 Medical Patch Hours, Branch Q24H, First dose on 08/06/22 at 1900, Until Discontinu ed, Routine hydralAZINE 2021-10 Yes 10mg 10 mg, Univ ers (APRESOLINE 0-09 Slow IV ity o f ) injection 22:46: Push, [place] 10 mg 17 Q4HPRN, Medical Starting Branch on [place] 08/06/22 at 1746, Until Discontinu ed, Routine, DBP=>10 0; SBP=>180 enoxaparin 2021-10- No 30mg 30 mg, Univ ers (LOVENOX) 016 Subcutaneo ity of injection 22:00: 08:57 us, DAILY, [place] 30 mg 00 :38 First dose Medical on [place] Branch 08/06/22 at 1700, Until Discontinu ed, Routine furosemide 2021-10- No 40mg 40 mg, Univ ers (LASIX) 008-08 Slow IV ity of injection 20:45: 14:49 Push, Q8H, [place] 40 mg 00 :09 First dose Medical on [place] Branch 08/06/22 at 1545, Until Discontinu ed, Routine aspirin 2021-10 No 324mg 324 mg, Unive rs chewable 008-06 Oral, ity of tablet 324 17:30: 16:59 ONCE, 1 [place] as mg 00 :00 dose, On Medical [place] Branch 08/06/22 at 1230, Routine morpHINE (4 2021-10- No 4mg 4 mg, Slow Univers mg/mL) 008-06 IV Push, ity of injection 4 16:15: 16:19 ONCE, 1 [place] mg 00 :00 dose, On Medical [place] [facility] 08/06/22 at 1115, STAT furosemide 2021-10 No 40mg 40 mg, IV U nivers (LASIX) 0- Push, ity of injection 15:45: 14:55 ONCE, 1 [place] 40 mg 00 :00 dose, On Medical [place] [facility] 08/06/22 at 1045, MARGARITA HYDROcodone 2020-10- [place] [id number] 1{tbl} Q4H Take 1 Methodi -acetaminop 1-23 12-[address] [facility] (NORCO) 00:00: 05:59 mouth Hosp dion 5-325 mg 00 :00 every 4 l per tablet (four) hours as needed for severe pain for up to 10 days .acute pain. Max Daily Amount: 6 tablets acetaminoph 2020-10 Yes Q8H Take by Met hodi en-codeine 1-[address] (TYLENOL 00:00: every 8 Hospit a WITH 00 (eight) l CODEINE #3) hours as 300-30 mg needed. per tablet lisinopriL 2020-10 Yes Methodi (PRINIVIL) 0-20 st 5 mg tablet 00:00: Hospit a 00 l fluticasone Yes [id number] 2{puff} Inhale 2 Univers -salmeterol 1-30 Puffs 2 ity o f 115-21 00:00: (two) [place] mcg/actuati 00 times Medical on inhaler daily. [place] lisinopril Yes [id number] 10mg Take 2 Univers 5 mg tablet 1-30 tablets by it y of 00:00: mouth 2 [place] 00 (two) Medical times Branch daily. fluticasone Yes [id number] 1{spray Use 1 Univers 50 1-30 } [place] in ity of mcg/actuati 00:00: each [place] on nasal 00 nostril Medical spray daily. Branch fluticasone Yes [id number] 2{puff} Inhale 2 Univers -salmeterol 1-30 Puffs 2 ity o f 115-21 00:00: (two) [place] mcg/actuati 00 times Medical on inhaler daily. Branch fluticasone Yes [id number] 2{puff} Inhale 2 Univers -salmeterol 1-30 Puffs 2 ity o f 115-21 00:00: (two) [place] mcg/actuati 00 times Medical on inhaler daily. Branch lisinopril Yes [id number] 10mg Take 2 Univers 5 mg tablet 1-30 tablets by it y of 00:00: mouth 2 [place] 00 (two) Medical times Branch daily. fluticasone Yes [id number] 1{spray Use 1 Univers 50 1-30 } [place] in ity of mcg/actuati 00:00: each [place] on nasal 00 nostril Medical spray daily. Branch fluticasone Yes [id number] 2{puff} Inhale 2 Univers -salmeterol 1-30 Puffs 2 ity o f 115-21 00:00: (two) [place] mcg/actuati 00 times Medical on inhaler daily. Branch lisinopril Yes [id number] 10mg Take 2 Univers 5 mg tablet 1-30 tablets by it y of 00:00: mouth 2 [place] (two) Medical times Branch daily. fluticasone Yes [id number] 1{spray Use 1 Univers 50 1-30 } [place] in ity of mcg/actuati 00:00: each [place] on nasal 00 nostril Medical spray daily. Branch fluticasone Yes [id number] 2{puff} Inhale 2 Univers -salmeterol 1-30 Puffs 2 ity o f 115-21 00:00: (two) [place] mcg/actuati 00 times Medical on inhaler daily. Branch lisinopril Yes [id number] 10mg Take 2 Univers 5 mg tablet 1-30 tablets by it y of 00:00: mouth 2 [place] 00 (two) Medical times Branch daily. fluticasone Yes [id number] 1{spray Use 1 Univers 50 1-30 } [place] in ity of mcg/actuati 00:00: each [place] on nasal 00 nostril Medical spray daily. Branch fluticasone Yes [id number] 2{puff} Inhale 2 Univers -salmeterol 1-30 Puffs 2 ity o f 115-21 00:00: (two) [place] mcg/actuati 00 times Medical on inhaler daily. Branch lisinopril 2021- No [id number] 10mg Take 2 Univers 5 mg tablet 1-30 10-10 tablets by i ty of 00:00: 00:00 mouth 2 [place] 00 :00 (two) Medical times Branch daily. fluticasone 2021- No [id number] 1{spray Use 1 Univers 50 1-30 10-10 } [place] in ity of mcg/actuati 00:00: 00:00 each [place] on nasal 00 :00 nostril Medical spray daily. Branch albuterol Yes [id number] 2{puff} Inhale 2 Univers (PROAIR 1-26 Puffs ity of HFA) 90 00:00: every 6 [place] mcg/actuati 00 (six) Medical on inhaler hours as Branc h needed for Wheezing or Shortness of Breath. albuterol Yes [id number] 2{puff} Inhale 2 Univers (PROAIR 1-26 Puffs ity of HFA) 90 00:00: every 6 [place] mcg/actuati 00 (six) Medical on inhaler hours as Branc h needed for Wheezing or Shortness of Breath. albuterol Yes [id number] 2{puff} Inhale 2 Univers (PROAIR 1-26 Puffs ity of HFA) 90 00:00: every 6 [place] mcg/actuati 00 (six) Medical on inhaler hours as Branc h needed for Wheezing or Shortness of Breath. albuterol Yes [id number] 2{puff} Inhale 2 Univers (PROAIR 1-26 Puffs ity of HFA) 90 00:00: every 6 [place] mcg/actuati 00 (six) Medical on inhaler hours as Branc h needed for Wheezing or Shortness of Breath. albuterol 2021- No [id number] 2{puff} Inhale 2 Univers (PROAIR 1-26 10-10 Puffs ity of HFA) 90 00:00: 00:00 every 6 [place] mcg/actuati 00 :00 (six) Medical on inhaler hours as Branc h needed for Wheezing or Shortness of Breath. traMADOL 2018-0 Yes 50mg Take 1 Univers (ULTRAM) 50 4-14 tablet by ity of mg tablet 00:00: mouth [place] 00 every 6 Medical (six) Branch hours as needed for Pain (scale 4-6). traMADOL 2018-0 Yes 50mg Take 1 Univers (ULTRAM) 50 4-14 tablet by ity of mg tablet 00:00: mouth [place] every 6 Medical (six) Branch hours as [...] as needed for Pain (scale 4-6). traMADOL 2021- No 50mg Take 1 Univer s (ULTRAM) 50 4-14 10-10 tablet by it y of mg tablet 00:00: 00:00 mouth [place] 00 :00 every 6 Medical (six) Branch hours as needed for Pain (scale 4-6). aspirin 81 2015-10 Yes 81mg Take 1 Unive rs mg chewable 1-28 tablet by ity of tablet 00:00: mouth [place] 00 daily. Medical Branch atorvastati 2015-10 Yes 20mg Take 1 Univ ers n (LIPITOR) 1-28 tablet by ity of 20 mg 00:00: mouth at [place] tablet 00 bedtime. Medical Branch clopidogrel 2015-10 Yes 75mg Take 1 Univ [...] capsule 00 (two) Medical times Branch daily. aspirin 81 2015-10 Yes 81mg Take 1 Unive rs mg chewable 1-28 tablet by ity of tablet 00:00: mouth [place] 00 daily. Medical Branch atorvastati 2015-10 Yes 20mg Take 1 Univ ers n (LIPITOR) 1-28 tablet by ity of 20 mg 00:00: mouth at [place] tablet 00 bedtime. Medical Branch clopidogrel 2015-10 Yes 75mg Take 1 Univ ers (PLAVIX) 75 1-28 tablet by ity of mg tablet 00:00: mouth [place] 00 daily. Medical Branch clopidogrel 2015-10 Yes 75mg Take 1 Univ [...] 75mg Take 1 Univ ers (PLAVIX) 75 - tablet by ity of mg tablet 00:00: mouth [place] 00 daily. Medical Branch SERTraline 2015-10 Yes 25mg Take 1 Unive rs (ZOLOFT) 25 - tablet by ity of mg tablet 00:00: mouth [place] 00 daily. Medical Branch SERTraline 2015-10- No 25mg Take 1 Univ ers (ZOLOFT) 25 - 10-19 tablet by it y of mg tablet 00:00: 00:00 mouth [place] 00 :00 daily. Medical Branch acetaminoph 2015-10- No 650mg Take 2 Un vera en - 10-10 tablets by ity of (TYLENOL) 00:00: 00:00 mouth [place] 325 mg 00 :00 every 6 Medical tablet (six) Branch hours as needed for Pain (scale 1-3). bisacodyl 2015-10- No 10mg Take 2 Unive rs (DULCOLAX) 1-28 10-10 tablets by it y of 5 mg EC 00:00: 00:00 mouth once [place] as tablet 00 :00 daily as Medical needed for Branch Constipati on. docusate 2015-10- No 100mg Take 1 Unive rs (COLACE) -28 10-10 capsule by ity of 100 mg 00:00: 00:00 mouth 2 [place] capsule 00 :00 (two) Medical times Branch daily. clopidogreL 2015-10- No 1{tbl} QD Take 1 M ethodi (PLAVIX) 75 1- 04-[address] mg tablet 00:00: 00:00 mouth Hospit a 00 :00 daily. l Vital Signs Vital Name Observation Time Observation Value Comments Source Respiratory rate 2022-08-16 20:32:00 22 /min [facility] O[facility] saturation in 2022-08-16 20:32:00 100 /min [facility] Arterial blood by [facility] Pulse oximetry Branch Systolic blood 2022-08-16 12:20:00 90 mm[Hg] Univer sity of pressure [facility] Diastolic blood 2022-08-16 12:20:00 64 mm[Hg] [facility] Heart rate 2022-08-16 12:20:00 70 /min [facility] Body temperature 2022-08-16 12:20:00 36.67 Kiah [facility] Body weight 2022-08-13 13:00:00 70 kg [facility] BMI 2022-08-13 13:00:00 19.81 kg/m2 [facility] Body height 2022-08-06 17:57:00 188 cm [facility] Procedures Procedure Date / Time Performing Clinician Source Performed COVID-19 (ID NOW RAPID 2022-08-16 18:35:00 Johan Kruse [facility] TESTING) Medical Branch [place] MODIFIED BARIUM SWALLOW 2022-08-15 14:59:32 Johan Kruse [facility] MAGNESIUM 2022-08-15 09:06:00 [facility] BASIC METABOLIC PANEL (NA, 2022-08-15 09:06:00 Johan Kruse [facility] K, CL, CO2, GLUCOSE, BUN, Medica l Branch CREATININE, CA) CBC WITH DIFF 2022-08-15 09:06:00 Johan Kruse [facility] MAGNESIUM 2022-08-14 09:59:00 Johan Kruse [facility] BASIC METABOLIC PANEL (NA, 2022-08-14 09:59:00 Johan Kruse [facility] K, CL, CO2, GLUCOSE, BUN, Medica l [place] CREATININE, CA) CBC WITH DIFF 2022-08-14 09:59:00 [facility] 1 VW 2022-08-13 14:45:57 [facility] PHOSPHORUS 2022-08-13 09:44:00 Abdullah, [facility] MAGNESIUM 2022-08-13 09:44:00 Ovjesus [facility] BASIC METABOLIC PANEL (NA, 2022-08-13 09:44:00 Ovjesus [facility] K, CL, CO2, GLUCOSE, BUN, Medica l Branch CREATININE, CA) CBC WITH DIFF 2022-08-13 09:44:00 Ovjesus [facility] N-TERMINAL PRO-BNP 2022-08-13 09:44:[address] [facility] MAGNESIUM 2022-08-12 10:30:00 Ovjesus [facility] BASIC METABOLIC PANEL (NA, 2022-08-12 10:30:00 Uriah, [facility] K, CL, CO2, GLUCOSE, BUN, Medica l Branch CREATININE, CA) CBC WITH DIFF 2022-08-12 10:30:00 Uriah [facility] N-TERMINAL PRO-BNP 2022-08-12 10:30:[address] [facility] MAGNESIUM 2022-08-11 09:34:00 Uriah [facility] BASIC METABOLIC PANEL (NA, 2022-08-11 09:34:00 Ovjesus [facility] K, CL, CO2, GLUCOSE, BUN, Medica l Branch CREATININE, CA) CBC WITH DIFF 2022-08-11 09:34:00 Uriah [facility] N-TERMINAL PRO-BNP 2022-08-11 09:34:[address] [facility] XR CHEST 1 VW 2022-08-10 11:59:18 Akbar [facility] PHOSPHORUS 2022-08-10 09:36:00 Erlinda [facility] MAGNESIUM 2022-08-10 09:36:00 Erlinda [facility] TROPONIN I 2022-08-10 09:36:00 Erlinda [facility] HEPATIC FUNCTION PANEL 2022-08-10 09:36:00 Leandro Grossman [facility] ([id number]) (ALB,T.PRO,BILI Medical Branch T,BU/BC,ALT,AST,ALK PHOS) BASIC METABOLIC PANEL (NA, 2022-08-10 09:36:00 Leandro Grossman [facility] K, CL, CO2, GLUCOSE, BUN, Medica l Branch CREATININE, CA) CBC WITH DIFF 2022-08-10 09:36:00 Erlinda [facility] N-TERMINAL PRO-BNP 2022-08-10 09:36:00 Leandro Grossman [facility] PHOSPHORUS 2022-08-09 08:47:00 [facility] MAGNESIUM 2022-08-09 08:47:00 Erlinda [facility] TROPONIN I 2022-08-09 08:47:00 Erlinda [facility] HEPATIC FUNCTION PANEL 2022-08-09 08:47:00 Leandro Grossman [facility] ([id number]) (ALB,T.PRO,[facility] T,BU/BC,ALT,AST,ALK PHOS) BASIC METABOLIC PANEL (NA, 2022-08-09 08:47:00 Leandro Grossman [facility] K, CL, CO2, GLUCOSE, BUN, Medica l Branch CREATININE, CA) CBC WITH DIFF 2022-08-09 08:47:00 Erlinda [facility] N-TERMINAL PRO-BNP 2022-08-09 08:47:00 Leandro Grossman [facility] PHOSPHORUS 2022-08-08 11:04:00 Erlinda [facility] MAGNESIUM 2022-08-08 11:04:00 Erlinda [facility] TROPONIN I 2022-08-08 11:04:00 Erlinda [facility] HEPATIC FUNCTION PANEL 2022-08-08 11:04:00 Leandro Grossman [facility] ([id number]) (ALB,T.PRO,[facility] Branch T,BU/BC,ALT,AST,ALK PHOS) BASIC METABOLIC PANEL (NA, 2022-08-08 11:04:00 Leandro Grossman [facility] K, CL, CO2, GLUCOSE, BUN, Medica l Branch CREATININE, CA) CBC WITH DIFF 2022-08-08 11:04:00 [facility] N-TERMINAL PRO-BNP 2022-08-08 11:04:00 Leandro Grossman [facility] US RETROPERITONEAL 2022-08-07 20:10:00 Luh [facility] COMPLETE [facility] TRANSTHORACIC ECHO (TTE) 2022-08-07 17:05:00 [facility] W/ DOPPLER AND Medical B ranch COLOR PHOSPHORUS 2022-08-07 11:23:00 Erlinda [facility] MAGNESIUM 2022-08-07 11:23:00 Erlinda [facility] CORTISOL AM 2022-08-07 11:23:00 Charmaine [facility] TROPONIN I 2022-08-07 11:23:00 Erlinda [facility] HEPATIC FUNCTION PANEL 2022-08-07 11:23:00 Leandro Grossman [facility] ([id number]) (ALB,T.PRO,BILI [facility] Branch T,BU/BC,ALT,AST,ALK PHOS) BASIC METABOLIC PANEL (NA, 2022-08-07 11:23:00 Leandro Grossman [facility] K, CL, CO2, GLUCOSE, BUN, Medica l Branch CREATININE, CA) CBC WITH DIFF 2022-08-07 11:23:00 Erlinda [facility] GLYCOSYLATED HEMOGLOBIN 2022-08-07 11:23:00 [facility] N-TERMINAL PRO-BNP 2022-08-07 11:23:00 [facility] AC VBG + LACTIC ACID 2022-08-07 11:23:00 Estelita Montano [facility] OSMOLALITY URINE 2022-08-07 06:04:00 Charmaine [facility] URINE DRUG (IMMUNOASSAY) - 2022-08-07 06:04:00 Estelita Montano [facility] COMPREHENSIVE DRUG SCREEN [facility] PNEUMOCOCCAL ANTIGEN 2022-08-07 06:04:00 Estelita Montano [facility] URINE CULTURE 2022-08-07 06:04:00 Estelita Montano [facility] UREA NITROGEN, URINE 2022-08-07 06:04:[address] [facility] RANDOM [facility] SODIUM, URINE RANDOM 2022-08-07 06:04:00 [facility] PROTEIN CREAT RATIO URINE 2022-08-07 06:04:00 Estelita Montano [facility] RANDOM [facility] CREATINE KINASE 2022-08-07 05:30:00 Charmaine [facility] URIC ACID 2022-08-07 05:30:00 Charmaine [facility] FERRITIN SERUM 2022-08-07 05:30:00 Charmaine [facility] OSMOLALITY, SERUM OR 2022-08-07 05:30:[address] [facility] PLASMA [facility] VITAMIN B12, LEVEL 2022-08-07 05:30:00 [facility] FOL[facility] 2022-08-07 05:30:00 Charmaine [facility] TROPONIN I 2022-08-07 05:30:00 Charmaine [facility] THYROID STIMULATING 2022-08-07 05:30:00 [facility] HORMONE [facility] BASIC METABOLIC PANEL (NA, 2022-08-07 05:30:00 Estelita Montano [facility] K, CL, CO2, GLUCOSE, BUN, [facility] CREATININE, CA) LIPID PANEL ([id number])(TOTAL 2022-08-07 05:30:00 Estelita Montano [facility] CHOLESTEROL, Medical [place] TRIGLYCERIDES, HDL) IRON PANEL 2022-08-07 05:30:00 Charmaine [facility] MYCOPLASMA PNEUMONIAE 2022-08-07 05:30:00 Estelita Montano [facility] ANTIBODY, IGM [facility] VITAMIN D, 25-OH 2022-08-07 05:30:00 Charmaine ashwin [facility] [place] [facility] PROCALCITONIN 2022-08-07 05:30:00 Charmaine [facility] RESPIRATORY PANEL BY PCR 2022-08-07 05:29:00 Estelita Montano [facility] AC PANEL 20 + LACTIC ACID 2022-08-07 05:20:00 Estelita Montano [facility] URINALYSIS 2022-08-06 21:45:00 Luh [facility] CREATININE, URINE RANDOM 2022-08-06 21:45:00 Luh [facility] TOTAL PROTEIN, URINE 2022-08-06 21:45:00 Luh [facility] UREA NITROGEN, URINE 2022-08-06 21:45:00 Luh [facility] XR HUMERUS 2 VW LEFT 2022-08-06 17:12:47 Angela Chavira [facility] XR CHEST 1 VW 2022-08-06 15:03:12 Angela Chavira [facility] AC PANEL 21 + LACTIC ACID 2022-08-06 14:55:00 Angela Chavira [facility] [place] [facility] LIPASE 2022-08-06 14:49:00 Angela Chavira [facility] TROPONIN I 2022-08-06 14:49:00 Angela Chavira [facility] COMP. METABOLIC PANEL 2022-08-06 14:49:00 Angela Chavira [facility] ([id number]) [facility] DIFF CONSULT 2022-08-06 14:49:[address] [facility] CBC WITH DIFF 2022-08-06 14:49:00 Angela Chavira [facility] PROTHROMBIN TIME / INR 2022-08-06 14:49:00 Angela Chavira [facility] ACTIVATED PARTIAL THRMPLAS 2022-08-06 14:49:00 Angela Chavira [facility] N-TERMINAL PRO-BNP 2022-08-06 14:49:00 [facility] (ID NOW RAPID 2022-08-06 14:49:00 Angela Chavira Un [facility] TESTING) Medical Branch LAB ONLY COVID 2022-08-06 14:49:00 Angela Chavira [facility] INTERPRETATION [facility] HB ECG ROUTINE & RHYTHM 2022-08-06 14:39:07 Angela Chavira [facility] XR HUMERUS LEFT 2021-10-18 16:44:41 Carrington Ayala [facility] spital XR SHOULDER 2+ VW LEFT 2021-09-30 14:43:58 Carrington Ayala [facility] XR UPPER EXTREMITY 2021-09-15 16:45:26 Carrington Ayala [facility] EXTERNAL STUDY Plan of Care Planned Activity Planned Date Details Comments Source Future Scheduled 2022-06-29 INFLUENZA VACCINE (#1) [facility] 00:00:00 [code = INFLUENZA Medical Ce nter VACCINE (#1)] Future Scheduled 2022-06-28 HEPATITIS B VACCINES Met [facility] Test 17:48:09 (1 of 3 - 3-dose series) [code = HEPATITIS B VACCINES (1 of 3 - 3-dose series)] Future Scheduled 2022-06-28 SHINGLES VACCINES (1 Met [facility] Test 17:48:09 of 2) [code = SHINGLES VACCINES (1 of 2)] Future Scheduled 2022-06-28 65+ [facility]OCOCCAL [facility] Test 17:48:09 VACCINE (1 - PCV) [code = 65+ PNEUMOCOCCAL VACCINE (1 - PCV)] Future Scheduled 2022-06-28 COVID-19 VACCINE (2 - [facility] Test 17:48:09 Moderna series) [code = COVID-19 VACCINE (2 - Moderna series)] Future Scheduled 2022-06-28 INFLUENZA VACCINE Method ist Hospital Test 17:48:09 [code = INFLUENZA VACCINE] Future Scheduled 2021-10-[address] [facility] Test 00:00:00 (12+) [code = Medical Center DEPRESSION SCREENING (12+)] Future Scheduled 2021-10-29 FALLS RISK SCREENING [facility] Test 00:00:00 [code = FALLS RISK Medical C enter SCREENING] Future Scheduled 2005-01-[address] [facility] 00:00:00 WELLNESS (YEAR 2 or Medical Center FIRST YEAR if no IPPE) [code = MEDICARE ANNUAL WELLNESS (YEAR 2 or FIRST YEAR if no IPPE)] Future Scheduled 2004-02-19 PNEUMOCOCCAL 65+ YRS [facility] Test 00:00:00 (1 - PCV) [code = Medical Ce nter PNEUMOCOCCAL 65+ YRS (1 - PCV)] Future Scheduled 1989 SHINGLES VACCINES ([address] [facility] Test 00:00:00 of 2) [code = SHINGLES Medic al Center VACCINES (1 of 2)] Future Scheduled 1958 DTAP/TDAP/TD VACCINES [facility] 00:00:00 (1 - Tdap) [code = Medical C enter DTAP/TDAP/TD VACCINES (1 - Tdap)] Future Scheduled 1939 COVID-19 VACCINE (#1) [facility] 00:00:00 [code = COVID-[address] VACCINE (#1)] Encounters Start End Encounter Admission Attending Care Care Encounter Source Date/Time Date/Time Type Type Clinicians Facility Department ID 2022-08-06 [id number] Univers 14:50[facility]47 [facility] 2021-09-13 Inpatient UR [facility] Orthopedics [id number] 02:50:15 [facility] 2022-08-17 2022-08-17 Transition MIRANDA Blanton [id number] Univers 00:00:00 00:00:00 of Care Kartik ESCUDERO 350.1.13.10 [place] 4.2.7.2.686 Farzaneh newsome [id number] [address] 2022-08-06 2022-08-16 [facility] [id number] Univers 09:36:00 15:54:00 JOHAN lima [facility] 2022-08-06 2022-08-16 [facility] Angela Chavira [facility] 1.2.84 0.114 [id number] [facility] 09:36:00 15:54:00 Encounter Leandro Grossman 350.1.13.10 ity Johan Guerrero 4.2.7.2.686 [facility] [id number] Medi radha 080 Branch 2022-01-31 2022-01-31 [facility] [place], 1.2.840.1 [id number] Methodi 00:00:00 00:00:00 Only Marisela 55924.1.[address] 3.430.2.7 Hospit a .3.885497 l .8 2021-11-08 2021-11-08 Office Carrington Ayala 1.2.840.1 [id number] Methodi 10:10:00 10:10:[address]29.1.[address] 3.430.2.7 Hospit a .3.525159 l .8 2021-11-08 2021-11-08 Outpatient [facility] [id number] [place] 00:00:00 00:00:[address] 2021-11-08 2021-11-08 Travel 1.2.840.1 [id number] [id number] Methodi 00:00:00 00:00:[address] 3.430.2.7 0.2.7.3.698 [facility] .3.557684 084.8 l .8 2021-10-31 2021-10-31 Telephone Dawit 1.2.840.1 [id number] Methodi 00:00:00 00:00:[address] 3.430.2.7 Hospit a .3.676808 l .8 2021-10-18 2021-10-18 Office Carrington Ayala 1.2.840.1 [id number] Methodi 10:20:00 11:28:22 [address]64.1.[address] 3.430.2.7 Hospit a .3.947716 l .8 2021-10-18 2021-10-18 Travel 1.2.840.1 1.2.641.222 [id number] Methodi 00:00:00 00:00:[address] 3.430.2.7 0.2.7.3.698 Ho spita .3.147855 084.8 l .8 2021-10-18 2021-10-18 Outpatient [facility] [id number] [place] 00:00:00 00:00:[address] 2021-10-18 2021-10-18 Outpatient [facility] [id number] [place] 00:00:00 00:00:[address] 2021-09-30 2021-09-30 Office Carrington Ayala 1.2.840.1 [id number] Methodi 09:10:00 09:32:12 [address] 11412.1.[address] 3.430.2.7 Hospit a .3.442361 l .8 2021-09-30 2021-09-30 Travel 1.2.840.1 1.2.705.124 [id number] Methodi 00:00:00 00:00:[address] 3.430.2.7 0.2.7.3.698 Ho spita .3.809892 084.8 l .8 2021-09-30 2021-09-30 Telephone [place] 1.2.840.1 [id number] [facility] 00:00:00 00:00:[address] 3.430.2.7 Hospit a .3.771501 l .8 2021-09-30 2021-09-30 [facility] [id number] [place] 00:00:00 00:00:[address] 2021-09-30 2021-09-30 [facility] 2100 [id number] [place] 00:00:00 00:00:[address] 2021-09-20 2021-09-20 [facility] Katie Ayalay 1.2.840.1 [id number] Methodi 15:20:44 23:59:00 Encounter B. [address].1.[address] 3.430.2.7 Hospit a .3.093281 l .8 2021-09-20 2021-09-20 Office Carrington Ayala 1.2.840.1 [id number] Methodi 15:00:00 16:06:[address]99[address]1.[address] 3.430.2.7 Hospit a .3.877820 l .8 2021-09-20 2021-09-20 Outpatient [facility] [id number] [place] 00:00:00 00:00:[address] 2021-09-20 2021-09-20 [facility] Katie Ayalay 1.2.840.1 [id number] Methodi 00:00:00 00:00:00 [address] B[address]42[address]1.[address] 3.430.2.7 Hospit a .3.203486 l .8 2021-09-20 2021-09-20 Outpatient [facility] [id number] [place] 00:00:00 00:00:[address] 2021-09-19 2021-09-19 Travel 1.2.840.1 1.2.842.659 [id number] Methodi 00:00:00 00:00:[address] 3.430.2.7 0.2.7.3.698 Ho spita .3.866783 084.8 l .8 2021-09-15 2021-09-15 Travel 1.2.840.1 1.2.631.904 [id number] Methodi 00:00:00 00:00:[address] 3.430.2.7 0.2.7.3.698 Ho spita .3.082066 084.8 l .8 2021-06-09 2021-06-09 Letter Sarai, [facility] 1.2.840.114 [id number] Univers 00:00:00 00:00:00 (Out) Aubrey Coffman 350.1.13.10 i ty of [facility] [place] [phone] [address] [place] 2021-06-08 2021-06-08 Laboratory Lab, Adc Fam Pob I [facility] 1.2. 840.114 [id number] Univers 09:24:45 09:44:45 [facility] 350.1.13.10 ity of [place] 4.2.7.2.686 [place] as Professio [phone] [address] Office Building One 2021-06-08 2021-06-08 Outpatient R [facility] [id number] Univers 09:20:00 09:20:00 NATALIE lima o f [facility] 2021-06-08 2021-06-08 Letter Doctor ADHIKARI 1.2.840.114 [id number] Univers 00:00:00 00:00:00 (Out) Unassigned, FRANCOISE 350.1.13.10 ity of [place] [facility] 42.7.2.686 [place] as [phone] [address] 2021-06-08 2021-06-08 Letter Doctor ADHIKARI 1.2.840.114 [id number] Univers 00:00:00 00:00:00 (Out) Unassigned, FRANCOISE 350.1.13.10 ity of [place] [facility] 42.7.2.686 [place] as [phone] [address] Results Test Description Test Time Test Comments Results Result Comments Source MYCOPLASMA PNEUMONIAE ANTIBODY, IGM 2022-08-09 21:09:47 Test Item Value Reference Range Interpretation Comme nts Mycoplasma IGM (test 0.09 U/L See_Comment INTERPR ETIVE INFORMATION: ?Mycoplasma code = 5256-3) pneumoniae Ab , IgM ?0.76 U/L or less .......... Nega tive: No clinically ?significant amount of ?M. pneumoniae IgM antibody ?detected. ?0.77 - 0.95 U/L ...... ..... Low Positive: M. pneumoniae- ?specific IgM presumptively ?detected. Collection of a ?follow-u p sample in 1-2 ?weeks is recommended to ?assure randell ctivity. ?0.96 U/L or greater ....... Positive: Highly significant ?amount of M. pneumoniae- ?specific IgM antibody ?detected. Mohan compa, low levels ?of IgM antibodies may ?occasionally p ersist for more ?than 12 months post-infection. Performed By: [facility] [place] [address] [id number] aboratory Director: Conrad lemus MD, PhD [Automated message] The sy stem which generated this result tra nsmitted reference range: <=0.76. The reference range was not used to int erpret this result as normal/abnormal . [facility] CampusDIFF CONSULT [id number] 20:52:12 ABSOLUTE LYMPHOPENIA, ABSOLUTE MONOCYTOPENIA, AND ABSOLUTE EOSINOPENIA. DOHLE BODIES IDENTIFIED. MACROCYTIC, NORMOCHROMIC ANEMIA. THROMBOCYTOSIS.[facility] CampusPROCALCITONIN2022-10-10 23:47:18 Test Item Value Reference Interpretation Comments Range Procalcitonin (test 3.25 ng/mL See_Comment H [Automa raven code = 4574769099) message] The system which generated this result transmitted reference range: <=0.08. The reference range was not used to interpret this result as normal/abnormal . ESTRELLA (test code = INTERPRETATION OF ESTRELLA) PROCALCITONIN RESULTS IN ADULTS >= 18 YEARS OF AGE Initiation and discontinuation of antibiotics on patients with suspected or confirmed Lower Respiratory Tract Infection in Adults >= 18 years of age. + +------ + ----+ +|Procalcit onin |Interpretation ?|Antibiotic ? ? |Considerations ? |ng/mL ? | ?|recommendation | ? + +------ + ----+ +| <0.1 ? | Bacterial ? ? ?| Strongly ? ? ?| ? | ?| infection very | discouraged ? | Overruling: ? | ?| unlikely ? ? ? | ? | ? Clinically unstable ? ? ? + +------ + ----+ ? High risk for adverse ? ? | <0.25 ?| Bacterial ? ? ?| Discouraged ? | ? outcome ? | ?| infection ? ? ?| ? | ? SEE IMPORTANT NOTE ?| ?| unlikely ? ? ? | ? | ? + +------ + ----+ +| >=0.25 ? ? ? | Bacterial ? ? ?| Encouraged ? ?| ? | ?| infection ? ? ?| ? | ? | ?| likely ? | ? | Consider treatment failure ?+ +----- + -----+ if levels does not decrease | >0.5 ? | Bacterial ? ? ?| Strongly ? ? ?| appropriately ? | ?| infection very | encouraged ? ?| ? | ?| likely ? | ? | ? + +------ + ----+ + Discontinuation of antibiotics in high-acuity patients with suspected or confirmed sepsis in Adults >= 18 years of age. + +------ + ----+ +|Procalcit onin |Interpretation ?|Antibiotic ? ? |Considerations ? |ng/mL ? | ?|recommendation | ? + +------ + ----+ +| <0.25 ?| Bacterial ? ? ?| Strongly ? ? ?| ? | ?| infection very | discouraged ? | Overruling: ? | ?| unlikely ? ? ? | ? | ? Clinically unstable ? ? ? + +------ + ----+ ? High risk for adverse ? ? | <0.5 or drop | Bacterial ? ? ?| Discouraged ? | ? outcome ? | >80% from ? ?| infection ? ? ?| ? | ? SEE IMPORTANT NOTE ?| highest PCT ?| unlikely ? ? ? | ? | ? | level ?| ?| ? | ? + +------ + ----+ +| >=0.5 ?| Bacterial ? ? ?| Encouraged ? ?| ? | ?| infection ? ? ?| ? | ? | ?| likely ? | ? | Consider treatment failure ?+ +----- + -----+ if levels does not decrease | >1.0 ? | Bacterial ? ? ?| Strongly ? ? ?| appropriately ? | ?| infection very | encouraged ? ?| ? | ?| likely ? | ? | ? + +------ + ----+ + Percentage of drop of Procalcitonin calculation for Discontinuation of antibiotics in high-acuity patients with suspected or confirmed sepsis in Adults >= 18 years of age. ? Procalcitonin highest{}-Procalcitoni n current{}Delta Procalcitonin = ___ x100% ? Procalcitonin current {} IMPORTANT NOTE: Procalcitonin may be elevated without bacterial infection by physiologic stress related to trauma, barriga, chronic dialysis, metastatic cancer, surgery in the past seven days, malaria, some fungal infections, and some forms of vasculitis. The interpretation algorithm may not apply to patients with immunosuppression (equivalent of >10 mg of prednisone daily), HIV with CD4 cell count < 350 cells/mm3, active malignancy on systemic chemotherapy, solid organ transplant or hematopoietic stem cell transplantation, or hospital acquired pneumonia. Additionally, some clinical trials of procalcitonin have excluded patients with shock requiring vasopressor use, acute respiratory failure requiring mechanical ventilation, or those with known lung abscess/empyema. For further information please refer to:[email or web address] Lab Interpretation Abnormal (test code = 38449-2) [facility] CampusCORTISOL [id number] 22:09:17 Test Item Value Reference Range Interpretation Comments JANELLE AM (test code = 48.9 ug/dL 4.5-23 H 1108301886) ESTRELLA (test code = ESTRELLA) Biotin has been reported to cause a positive bias, interpret results relative to patient's use of biotin. Lab Interpretation (test Abnormal code = 52521-0) [facility] CampusTransthoracic echo (TTE)2022-08-07 21:38:53 Test Item Value Reference Range Interpretation Comments Height (test code = in 9089493804) Weight (test code = lbs 8361907228) Systolic BP (test code = mmHg 8900820367) Diastolic BP (test code mmHg = 5329739360) Heart Rate (test code = bpm 3552535926) BSA (test code = 1.94 m2 6287574169) TR Peak Homer (test code = 299.2 cm/s 1795861588) Triscuspid Valve mmHg Regurgitation Peak Gradient (test code = 5339335064) LVIDD (test code = 3.50 cm 1249586594) Left Ventricular End 51.0 mL Diastolic Volume by Teichholz Method (test code = 2982690) IVS (test code = 1.04 cm 1934752840) Interventricular Septum 1.04 cm Diastolic Thickness by 2D (test code = 8604720) LVPWD (test code = 0.94 cm 7010833699) PW (test code = 0.94 cm 0.6-1.3 3918508986) EF(Teich) (test code = 63.60 % 4184020964) LVIDS (test code = 2.32 cm 6784479133) Left Ventricular End 18.6 mL Systolic Volume by Teichholz Method (test code = 9162932) FS (test code = 34 % 7465390658) EF - 2D (test code = 63.60 % 61059896) Radiology Study observation (narrative) (test code = 00290-4) ESTRELLA (test code = ESTRELLA) ?Left?Ventricle: Left ventricle size is normal. Normal wall thickness. Normal wall motion. Hyperdynamic systolic function with a visually estimated EF of 65 - 70%. Unable to assess diastolic function due to inadequate/inaccruate Tissue Doppler data. ?Right?Ventricle: Right ventricle is mildly dilated. Normal systolic function. ?Tricuspid?Valve: Right ventricular systolic pressure is 35 mmHg + RA pressure. ?IVC/SVC: IVC was not well visualized. ?Pericardium: Small pericardial effusion present. No indication of cardiac tamponade. Left VentricleLeft ventricle size is normal. Normal wall thickness. Normal wall motion. Hyperdynamic systolic function with a visually estimated EF of 65 - 70%. Unable to assess diastolic function due to inadequate/inaccruate Tissue Doppler data.Right VentricleRight ventricle is mildly dilated. Normal systolic function.Left AtriumLeft atrium size is normal.Right AtriumRight atrium size is normal.IVC/SVCIVC was not well visualized.Mitral ValveMitral valve structure is normal. Trace transvalvular regurgitation.Tricusp id ValveTricuspid valve structure is normal. Trace transvalvular regurgitation. Right ventricular systolic pressure is 35 mmHg + RA pressure.Aortic ValveAortic valve structure is normal.Pulmonic ValveNot well visualized.Ascending AortaNormal sized aorta.PericardiumSmal l pericardial effusion present. No indication of cardiac tamponade.Study DetailsStudy quality was technically limited. A limited echocardiogram was performed using 2D, color flow Doppler and spectral Doppler. The parasternal and subcostal views were obtained. [facility] CampusVITAMIN B12, [id number] 17:23:36 Test Item Value Reference Range Interpretation Comments VIT B12 (test code = 240-930 H 5369813438) ESTRELLA (test code = ESTRELLA) Biotin has been reported to cause a positive bias, interpret results relative to patient's use of biotin. Lab Interpretation (test Abnormal code = 35165-1) [facility] CampusFOLATE2022-10-10 17:19:48 Test Item Value Reference Range Interpretation Comments FOLATE SER (test code = 5.4 ng/mL 3-20 Biot in has been 6866971429) reported to cau se a positive bias, interpret resul ts relative to patient's use o f biotin. Lab Interpretation (test Normal code = 79215-4) [facility] CampusVITAMIN D, [id number] 16:38:45 Test Item Value Reference Range Interpretation Comments VIT D 25OH (test code = 30 ng/mL 25-80 31399-6) ESTRELLA (test code = ESTRELLA) Deficiency: <20 ng/mLInsufficiency : 20-24 ng/mLOptimal: 25-80 ng/mL Lab Interpretation (test Normal code = 59963-6) [facility] CampusCBC WITH [id number] 16:12:26 Test Item Value Reference Range Interpretation Comments WBC (test code = See_Comment [Automated 6690-2) message] The system which generated this result transmitted reference range : 4.20 - 10.70 10*3/?L. The reference range was not used to interpret this result as normal/abnormal . RBC (test code = See_Comment L [Automated 079-8) message] The system which generated this result transmitted reference range : 4.26 - 5.52 10*6/?L. The reference range was not used to interpret this result as normal/abnormal . HGB (test code = 10.4 g/dL 12.2-16.4 L 718-7) HCT (test code = 32.2 % 38.4-49.3 L 4544-3) MCV (test code = 98.8 fL 81.7-95.6 H 787-2) MCH (test code = 31.9 pg 26.1-32.7 785-6) MCHC (test code = 32.3 g/dL 31.2-35 786-4) RDW-SD (test code = 54.2 fL 38.5-51.6 H 33849-4) RDW-CV (test code = 14.8 % 12.1-15.4 788-0) PLT (test code = See_Comment H [Automated 777-3) message] The system which generated this result transmitted reference range : 150 - 328 10*3/?L. The reference range was not used to interpret this result as normal/abnormal . MPV (test code = 10.9 fL 9.8-13 25657-9) NRBC/100 WBC (test See_Comment [Automat ed code = 5464777542) message] The system which generated this result transmitted reference range : 0.0 - 10.0 /100 WBCs. The reference range was not used to interpret this result as normal/abnormal . NRBC x10^3 (test code See_Comment [Auto mated = 3764758934) message] The system which generated this result transmitted reference range : 10*3/?L. The reference range was not used to interpret this result as normal/abnormal . GRAN MAT (NEUT) % 88.0 % (test code = 770-8) IMM GRAN % (test code 1.10 % = 9241993023) LYMPH % (test code = 4.3 % 736-9) MONO % (test code = 6.0 % 5905-5) EOS % (test code = 0.0 % 713-8) BASO % (test code = 0.6 % 706-2) GRAN MAT x10^3(ANC) 5.77 10*3/uL 1.99-6.95 (test code = 2146350714) IMM GRAN x10^3 (test 0.07 10*3/uL 0-0.06 H code = 8645560617) LYMPH x10^3 (test 0.28 10*3/uL 1.09-3.23 L code = 731-0) MONO x10^3 (test code 0.39 10*3/uL 0.36-1.02 = 742-7) EOS x10^3 (test code 0.06-0.53 L = 711-2) BASO x10^3 (test code 0.04 10*3/uL 0.01-0.09 = 704-7) BANDS (test code = MARKED INCREASED A 1090509891) Lab Interpretation Abnormal (test code = 95285-6) [facility] BranchOSMOLALITY, SERUM OR [id number] 15:45:08 Test Item Value Reference Range Interpretation Comments OSMOLALITY (test code = See_Comment H [Au tomated message] 2692-2) The system Pfenex generated this result transmitted ref erence range: 278 - 30 5 mOsm/kg. The reference range was not used to int erpret this result as normal/abnormal . Lab Interpretation (test Abnormal code = 11033-3) [facility] CampusTROPONIN [id number] 12:19:25 Test Item Value Reference Interpretation Comments Range TROPONIN I (test 0.144 ng/mL See_Comment H [Automated code = 3593064808) message] The system which generated this result transmitted reference range : <=0.034. The reference range was not used to interpret this result as normal/abnormal . ESTRELLA (test code = Reference (Normal) ESTRELLA) Range (defined by the 99th percentile reference limit): <= 0.034 ng/mL Note: Cardiac troponin begins to rise 3-4 hours after the onset of ischemia. Repeat in 4-6 hours if the sample was drawn within 3-4 hours of the onset of the symptom and found normal. Diagnosis of myocardial injury is made with acute changes in cTn concentrations with at least one serial sample above the 99th percentile upper reference limit (URL), taken together with the patient's clinical presentation. Biotin has been reported to cause a negative bias, interpret results relative to patient's use of biotin. Lab Interpretation Abnormal (test code = 34794-1) [facility] CampusN-TERMINAL [id number] 12:16:04 Test Item Value Reference Range Interpretation Comments NT-proBNP (test code 7640 pg/mL See_Comment H [Autom ated = 3604122876) message] The system which generated this result transmitted reference range : <=450. The reference range was not used to interpret this result as normal/abnormal . ESTRELLA (test code = ESTRELLA) Biotin has been reported to cause a negative bias, interpret results relative to patient's use of biotin. Lab Interpretation Abnormal (test code = 08337-1) [facility] CampusGLYCOSYLATED HEMOGLOBIN (A1C)2022-08-07 12:15:13 Test Item Value Reference Range Interpretation Comments HGB A1C (test code = 5.5 % 4-5.7 4548-4) ESTRELLA (test code = ESTRELLA) Reference RangesNormal: <5.7%Prediabetes: 5.7 - 6.4%Diabetes: > 6.5% Lab Interpretation (test Normal code = 71069-5) [facility] METABOLIC PANEL (NA, K, CL, CO2, GLUCOSE, BUN, CREATININE, CA)2022-08-07 12:07:24 Test Item Value Reference Range Interpretation Comments NA (test code = 140 mmol/L 135-145 5399836506) K (test code = 4.5 mmol/L 3.5-5 1812100006) CL (test code = 101 mmol/L 98-108 1009481951) CO2 TOTAL (test code = 27 mmol/L 23-31 9119392556) AGAP (test code = 2-16 2410735242) BUN (test code = 74 mg/dL 7-23 H 8091851570) GLUCOSE (test code = 129 mg/dL 70-110 H 5434732309) CREATININE (test code = 3.47 mg/dL 0.6-1.25 H 5449143032) CALCIUM (test code = 8.6 mg/dL 8.6-10.6 7214385151) eGFR (test code = mL/min/1.73m2 6537456736) ESTRELLA (test code = ESTRELLA) Association of Glomerular Filtration Rate (GFR) and Staging of Kidney Disease* + --+ --+ ------+| GFR (mL/min/1.73 m2) ?| With Kidney Damage ?| ?Without Kidney Damage+ --------+ --------+ +| ?>90 ?| ?Stage one ?| ? Normal ?+ ---+ ---+ -------+| ?60-89 ?| ?Stage two ?| ? Decreased GFR ? + --+ --+ ------+| ?30-59 ?| ?Stage three ?| ? Stage three ? + --+ --+ ------+| ?15-29 ?| ?Stage four ? | ? Stage four ?+ ---+ ---+ -------+| ?<15 (or dialysis) ? ?| ?Stage five ? | ? Stage five ?+ ---+ ---+ -------+ *Each stage assumes the associated GFR level has been in effect for at least three months. ?Stages 1 to 5, with or without kidney disease, indicate chronic kidney disease. Notes: Determination of stages one and two (with eGFR >59mL/min/1.73 m2) requires estimation of kidney damage for at least three months as defined by structural or functional abnormalities of the kidney, manifested by either:Pathological abnormalities or Markers of kidney damage (including abnormalities in the composition of the blood or urine or abnormalities in imaging tests). Lab Interpretation Abnormal (test code = 45188-5) [facility] CampusHEPATIC FUNCTION PANEL (35323) (ALB,T.PRO,BILI T,BU/BC,ALT,AST,ALK PHOS)2022-08-07 12:07:24 Test Item Value Reference Range Interpretation Comments TOTAL BILI (test code = 1082631188) 0.8 mg/dL 0.1-1.1 BILI UNCON (test code = 7815759275) 0.1 mg/dL 0.1-1.1 BILI CONJ (test code = 4853085699) 0.0 mg/dL 0-0.3 T PROTEIN (test code = 1497508740) 6.3 g/dL 6.3-8.2 ALBUMIN (test code = 6938853513) 3.2 g/dL 3.5-5 L ALK PHOS (test code = 7024879245) 79 U/L 34-122 ALTv (test code = 1742-6) 20 U/L 5-50 AST(SGOT) (test code = 5691807268) 23 U/L 13-40 Lab Interpretation (test code = Abnormal 31973-9) [facility] CampusMAGNESIUM2022-10-10 12:07:24 Test Item Value Reference Range Interpretation Comments MAGNESIUM (test code = 4388944112) 2.6 mg/dL 1.7-2.4 H Lab Interpretation (test code = Abnormal 21497-2) [facility] CampusPHOSPHORUS2022-10-10 12:07:24 Test Item Value Reference Range Interpretation Comments PHOSPHORUS (test code = 9852102676) 5.0 mg/dL 2.5-5 Lab Interpretation (test code = Normal 88285-9) [facility] CampusAC VBG + LACTIC [id number] 11:33:10 Test Item Value Reference Range Interpretation Comments PH (test code = 7.32-7.42 4385344131) PCO2 CLAUDIA (test code = See_Comment L [Auto mated 3005644378) message] The sy stem which generated this result transmitted reference range : 41 - 51 mmHg. The reference range was not used to interpret this result as normal/abnormal . PO2 CLAUDIA (test code = See_Comment HH [Autom ated 9237990574) message] The sy stem which generated this result transmitted reference range : 25 - 40 mmHg. The reference range was not used to interpret this result as normal/abnormal . HCO3 CLAUDIA (test code = See_Comment [Auto mated 0842873189) message] The sy stem which generated this result transmitted reference range : 24 - 28 mEq/L. The reference range was not used to interpret this result as normal/abnormal . AC VBE(BEAKER) (test mEq/L code = 9426268364) LACTIC ACID (test code 1.77 mmol/L 0.5-2.2 = 6633328216) Lab Interpretation Abnormal (test code = 51834-1) [facility] CampusFERRITIN [id number] 06:35:37 Test Item Value Reference Range Interpretation Comments FERRITIN (test code = 121.0 ng/mL 18-464 0759190323) ESTRELLA (test code = ESTRELLA) Biotin has been reported to cause a negative bias, interpret results relative to patient's use of biotin. Lab Interpretation (test Normal code = 44878-3) [facility] CampusTHYROID STIMULATING [id number] 06:31:37 Test Item Value Reference Range Interpretation Comments TSH (test code = See_Comment [Automated message] 0992624647) The system whic h generated this result transmitted ref erence range: 0.45 - 4 .70 mIU/L. The refe rence range was not u sed to interpret this result as normal/abnor mal. Lab Interpretation (test Normal code = 20843-2) [facility] CampusTROPONIN [id number] 06:12:54 Test Item Value Reference Interpretation Comments Range TROPONIN I (test 0.164 ng/mL See_Comment H [Automated code = 8352364500) message] The system which generated this result transmitted reference range : <=0.034. The reference range was not used to interpret this result as normal/abnormal . ESTRELLA (test code = Reference (Normal) ESTRELLA) Range (defined by the 99th percentile reference limit): <= 0.034 ng/mL Note: Cardiac troponin begins to rise 3-4 hours after the onset of ischemia. Repeat in 4-6 hours if the sample was drawn within 3-4 hours of the onset of the symptom and found normal. Diagnosis of myocardial injury is made with acute changes in cTn concentrations with at least one serial sample above the 99th percentile upper reference limit (URL), taken together with the patient's clinical presentation. Biotin has been reported to cause a negative bias, interpret results relative to patient's use of biotin. Lab Interpretation Abnormal (test code = 43194-0) [facility] CampusIRO [id number] 06:07:33 Test Item Value Reference Range Interpretation Comments IRON (test code = 4020753949) 17 ug/dL 50-160 L TIBC (test code = 3151578442) 234 ug/dL 250-410 L % FE SAT (test code = 5688048610) 7 % 20-50 L Lab Interpretation (test code = Abnormal 02394-3) [facility] METABOLIC PANEL (NA, K, CL, CO2, GLUCOSE, BUN, CREATININE, CA)2022-08-07 05:58:55 Test Item Value Reference Range Interpretation Comments NA (test code = 140 mmol/L 135-145 5328143992) K (test code = 4.6 mmol/L 3.5-5 4934905709) CL (test code = 100 mmol/L 98-108 8884430733) CO2 TOTAL (test code = 27 mmol/L 23-31 6278219796) AGAP (test code = 2-16 5958140321) BUN (test code = 73 mg/dL 7-23 H 6154748642) GLUCOSE (test code = 117 mg/dL 70-110 H 5049744045) CREATININE (test code = 3.52 mg/dL 0.6-1.25 H 0777124265) CALCIUM (test code = 8.6 mg/dL 8.6-10.6 7698667613) eGFR (test code = mL/min/1.73m2 6691112852) ESTRELLA (test code = ESTRELLA) Association of Glomerular Filtration Rate (GFR) and Staging of Kidney Disease* + --+ --+ ------+| GFR (mL/min/1.73 m2) ?| With Kidney Damage ?| ?Without Kidney Damage+ --------+ --------+ +| ?>90 ?| ?Stage one ?| ? Normal ?+ ---+ ---+ -------+| ?60-89 ?| ?Stage two ?| ? Decreased GFR ? + --+ --+ ------+| ?30-59 ?| ?Stage three ?| ? Stage three ? + --+ --+ ------+| ?15-29 ?| ?Stage four ? | ? Stage four ?+ ---+ ---+ -------+| ?<15 (or dialysis) ? ?| ?Stage five ? | ? Stage five ?+ ---+ ---+ -------+ *Each stage assumes the associated GFR level has been in effect for at least three months. ?Stages 1 to 5, with or without kidney disease, indicate chronic kidney disease. Notes: Determination of stages one and two (with eGFR >59mL/min/1.73 m2) requires estimation of kidney damage for at least three months as defined by structural or functional abnormalities of the kidney, manifested by either:Pathological abnormalities or Markers of kidney damage (including abnormalities in the composition of the blood or urine or abnormalities in imaging tests). Lab Interpretation Abnormal (test code = 24142-6) [facility] CampusLIPID PANEL (54407)(TOTAL CHOLESTEROL, TRIGLYCERIDES, HDL)2022-08-07 05:58:55 Test Item Value Reference Range Interpretation Comments CHOL (test code = 109 mg/dL 120-200 L 7199473950) HDL (test code = 20 mg/dL See_Comment L [Automated message] [id number]) The system [employer] generated this result transmit raven reference range : >=40. The refer ence range was not u sed to interpret th is result as normal/abnormal . HDLC RATIO (test code = See_Comment H [Au tomated message] 7137408101) The system [employer] generated this result transmit raven reference range : <=5.0. The refe rence range was not u sed to interpret th is result as normal/abnormal . TRIG (test code = 141 mg/dL 30-170 0532187992) LDL CHOL (test code = 61 mg/dL See_Comment [Auto mated message] 97757-1) The system [employer] generated this result transmit raven reference range : <=160. The refe rence range was not u sed to interpret th is result as normal/abnormal . VLDL (test code = 28 mg/dL 5-60 9907437047) Lab Interpretation (test Abnormal code = 95196-9) [facility]URIC [id number] 05:58:35 Test Item Value Reference Range Interpretation Comments URIC ACID (test code = 9123228522) 9.8 mg/dL 3.6-8 H Lab Interpretation (test code = Abnormal 84959-1) [facility]CREATINE [id number] 05:57:55 Test Item Value Reference Range Interpretation Comments CK (test code = 8232022692) 121 U/L 33-194 Lab Interpretation (test code = Normal 62979-5) [facility] Panel 20 + Lactic [id number] 05:30:03 Test Item Value Reference Range Interpretation Comments PH (test code = 2) 7.35-7.45 L PCO2 (test code = See_Comment H [Automate d 9657420885) message] The sy stem which generated this result transmitted reference range : 35 - 45 mmHg. The reference range was not used to interpret this result as normal/abnormal . PO2 (test code = See_Comment H [Automated 2199444427) message] The sy stem which generated this result transmitted reference range : 80 - 100 mmHg. The reference range was not used to interpret this result as normal/abnormal . HCO3 (test code = See_Comment [Automate d 1376222971) message] The sy stem which generated this result transmitted reference range : 22 - 26 mEq/L. The reference range was not used to interpret this result as normal/abnormal . BE (test code = See_Comment [Automated 8727361475) message] The sy stem which generated this result transmitted reference range : -3.0 - 3.0 mEq/ L. The reference r demetris was not used to interpret this result as normal/abnormal . THB (test code = 14.0 g/dL 13.5-18 5743044305) %O2HB (test code = 97.7 % 94-99 7751511253) %COHB ART (test code = 0.7 % 0-1.5 9610114777) %METHB ART (test code = 0.2 % 0.4-1.5 L 7322855492) VOL%O2 ART (test code = 19.4 % 15-23 8298079354) NA (test code = 137 mmol/L 135-145 6585607811) K+ (test code = 4.2 mmol/L 3.5-5 4035728947) AC CA IONZ (test code = 4.60 mg/dL 4.5-5.3 8200007705) GLUCOSE (test code = 119 mg/dL 70-110 H 1390485324) LACTIC ACID (test code 1.78 mmol/L 0.5-2.2 = 7949211621) Lab Interpretation Abnormal (test code = 66834-1) [facility] CampusTROPONIN [id number] 16:19:36 Test Item Value Reference Interpretation Comments Range TROPONIN I (test 0.254 ng/mL See_Comment H [Automated code = 7217408388) message] The system which generated this result transmitted reference range : <=0.034. The reference range was not used to interpret this result as normal/abnormal . ESTRELLA (test code = Reference (Normal) ESTRELLA) Range (defined by the 99th percentile reference limit): <= 0.034 ng/mL Note: Cardiac troponin begins to rise 3-4 hours after the onset of ischemia. Repeat in 4-6 hours if the sample was drawn within 3-4 hours of the onset of the symptom and found normal. Diagnosis of myocardial injury is made with acute changes in cTn concentrations with at least one serial sample above the 99th percentile upper reference limit (URL), taken together with the patient's clinical presentation. Biotin has been reported to cause a negative bias, interpret results relative to patient's use of biotin. Lab Interpretation Abnormal (test code = 27073-2) [facility] CampusN-TERMINAL [id number] 16:16:39 Test Item Value Reference Range Interpretation Comments NT-proBNP (test code 72058 pg/mL See_Comment H [Autom ated = 0678408689) message] The system which generated this result transmitted reference range : <=450. The reference range was not used to interpret this result as normal/abnormal . ESTRELLA (test code = ESTRELLA) Biotin has been reported to cause a negative bias, interpret results relative to patient's use of biotin. Lab Interpretation Abnormal (test code = 91314-3) [facility]. METABOLIC PANEL (53570)2022-08-06 16:08:15 Test Item Value Reference Range Interpretation Comments NA (test code = 140 mmol/L 135-145 2918974838) K (test code = 4.6 mmol/L 3.5-5 4310501801) CL (test code = 103 mmol/L 98-108 9872427259) CO2 TOTAL (test code = 23 mmol/L 23-31 2276049168) AGAP (test code = 2-16 7360653060) BUN (test code = 64 mg/dL 7-23 H 4187158430) GLUCOSE (test code = 97 mg/dL 70-110 7562608478) CREATININE (test code = 3.95 mg/dL 0.6-1.25 H 1034115652) TOTAL BILI (test code = 0.7 mg/dL 0.1-1.0 7849019701) CALCIUM (test code = 8.4 mg/dL 8.6-10.6 L 5793124194) T PROTEIN (test code = 5.4 g/dL 6.3-8.2 L 3422941668) ALBUMIN (test code = 2.9 g/dL 3.5-5 L 8743511423) ALK PHOS (test code = 73 U/L 34-122 7385961058) ALTv (test code = 18 U/L 5-50 1742-6) AST(SGOT) (test code = 22 U/L 13-40 5086081456) eGFR (test code = mL/min/1.73m2 1082202865) ESTRELLA (test code = ESTRELLA) Association of Glomerular Filtration Rate (GFR) and Staging of Kidney Disease* + --+ --+ ------+| GFR (mL/min/1.73 m2) ?| With Kidney Damage ?| ?Without Kidney Damage+ --------+ --------+ +| ?>90 ?| ?Stage one ?| ? Normal ?+ ---+ ---+ -------+| ?60-89 ?| ?Stage two ?| ? Decreased GFR ? + --+ --+ ------+| ?30-59 ?| ?Stage three ?| ? Stage three ? + --+ --+ ------+| ?15-29 ?| ?Stage four ? | ? Stage four ?+ ---+ ---+ -------+| ?<15 (or dialysis) ? ?| ?Stage five ? | ? Stage five ?+ ---+ ---+ -------+ *Each stage assumes the associated GFR level has been in effect for at least three months. ?Stages 1 to 5, with or without kidney disease, indicate chronic kidney disease. Notes: Determination of stages one and two (with eGFR >59mL/min/1.73 m2) requires estimation of kidney damage for at least three months as defined by structural or functional abnormalities of the kidney, manifested by either:Pathological abnormalities or Markers of kidney damage (including abnormalities in the composition of the blood or urine or abnormalities in imaging tests). Lab Interpretation Abnormal (test code = 58462-7) [facility] CampusLIPASE, [id number] 16:07:55 Test Item Value Reference Range Interpretation Comments LIPASE (test code = 8408344735) 12 U/L 0-220 Lab Interpretation (test code = Normal 28601-5) [facility] CampusCB WITH [id number] 16:03:24 Test Item Value Reference Range Interpretation Comments WBC (test code = See_Comment [Automated 6690-2) message] The sy stem which generated this result transmitted reference range : 4.20 - 10.70 10*3/?L. The reference range was not used to interpret this result as normal/abnormal . RBC (test code = See_Comment L [Automated 789-8) message] The sy stem which generated this result transmitted reference range : 4.26 - 5.52 10*6/?L. The reference range was not used to interpret this result as normal/abnormal . HGB (test code = 10.9 g/dL 12.2-16.4 L 718-7) HCT (test code = 32.8 % 38.4-49.3 L 4544-3) MCV (test code = 95.9 fL 81.7-95.6 H 787-2) MCH (test code = 31.9 pg 26.1-32.7 785-6) MCHC (test code = 33.2 g/dL 31.2-35 786-4) RDW-SD (test code = 51.5 fL 38.5-51.6 74619-7) RDW-CV (test code = 14.6 % 12.1-15.4 788-0) PLT (test code = See_Comment H [Automated 777-3) message] The sy stem which generated this result transmitted reference range : 150 - 328 10*3/ ?L. The reference r demetris was not used to interpret this result as normal/abnormal . MPV (test code = 10.9 fL 9.8-13 04516-0) NRBC/100 WBC (test See_Comment [Automat ed code = 2547852111) message] The system which generated this result transmitted reference range : 0.0 - 10.0 /100 WBCs. The refer ence range was not u sed to interpret th is result as normal/abnormal . NRBC x10^3 (test code See_Comment [Auto mated = 2169869427) message] The s ystem which generated this result transmitted reference range : 10*3/?L. The reference range was not used to interpret this result as normal/abnormal . SEG % (test code = 31 % 33-76 L 61079-1) BAND % (test code = 30 % 0-1 H 13685-9) META % (test code = 1 % See_Comment H [Automa raven 39893-7) message] The sy stem which generated this result transmitted reference range : <=0. The refere nce range was not u sed to interpret th is result as normal/abnormal . LYMPH % (test code = 24 % 14-54 16892-2) MONO % (test code = 14 % 0-4 H 26350-2) ANC (test code = 3.63 10*3/uL 1.99-6.95 753-4) DOHLE BODIES (test Present A code = 7792-5) TOXIC CHANGES (test Present A code = 803-7) PLT ESTIMATE (test Increased Normal A code = 9317-9) Lab Interpretation Abnormal (test code = 56287-6) [facility] CampusaPTT2022-10-09 15:23:12 Test Item Value Reference Range Interpretation Comments APTT Patient (test See_Comment [Automat ed code = 3173-2) message] The system which generated this result transmitted reference range : 23 - 38 Seconds . The reference range was not used to interpr et this result as normal/abnormal . ESTRELLA (test code = ESTRELLA) The [facility] patient population mean normal value for aPTT is 30 seconds. Lab Interpretation Normal (test code = 64621-9) [facility] CampusPROTHROMBIN TIME / [id number] 15:20:57 Test Item Value Reference Range Interpretation Comments PROTIME PATIENT (test See_Comment [Auto mated message] code = 5964-2) The system [employer] generated this result transmitted ref erence range: 12.0 - 1 4.7 Seconds. The re ference range was not u sed to interpret this result as normal/abnor mal. INR (test code = 6301-6) Nor mal INR <1.1; Warfarin Therap eutic range 2.0 to 3. 0 or 2.5 to 3.5, dep ending upon the indica tions. Lab Interpretation (test Normal code = 30472-8) [facility]"
[2022-08-20] MEDS ORDERED: CEFAZOLIN SODIUM 1 GM/VIAL ONE (16:35)
[2022-08-20] MEDS ORDERED: NA CHLORIDE 0.9% 100 ML IV ONE (16:36)
[2022-08-20] MEDS ORDERED: MORPHINE 4 MG/ML SYR ONE (16:36)
[2022-08-20] MEDS ORDERED: ONDANSETRON 4 MG/2 ML VIAL ONE (16:36)
[2022-08-20] MEDS ORDERED: NA CHLORIDE 0.9% 1,000 ML ONE (17:31)
--- NOTE | 2022-08-20 17:32 | EDPHYS ---
Physician Documentation [facility] Name: Rahat Montana Age: 82 yrs Sex: Male : 1940 Arrival Date: 08/20/2022 Time: 16:16 Bed 7 Private MD: ED Physician Cosme Casillas HPI: 08/20 17:22 This 82 yrs old Male presents to ER via EMS with complaints of open fracture. rn 17:22 The patient or guardian complains of decreased range of motion, deformity, injury, rn pain. The complaints affect the left bicep. Onset: The symptoms/episode began/occurred at an unknown time. Modifying factors: The symptoms are alleviated by nothing. the symptoms are aggravated by movement. Severity of symptoms: At their worst the symptoms were moderate, in the emergency department the symptoms are unchanged. The patient has not experienced similar symptoms in the past. The patient has not recently seen a physician. EMS reports recent humerus fracture 3 weeks ago, non-operative treatment since then. Something happened at group home today, group home nurse noticed blood in dressing/splint, opened it up and now increased deformity with open wound near fracture site. Clots found outside of wound. senior care does not know how it happened. . Historical: - Allergies: 17:06 No Known Allergies; ph - PMHx: 17:06 Anxiety; CVA; Depression; Hyperlipidemia; ph - Immunization history:: Adult Immunizations unknown. - Social history:: Smoking status: unknown. - Family history:: not pertinent. - Hospitalizations: : No recent hospitalization is reported. ROS: 17:22 Unable to obtain ROS due to baseline stroke. rn Exam: 17:22 Constitutional: This is a well developed, well nourished patient who is awake, alert, rn and in no acute distress. Head/Face: Normocephalic, atraumatic. Cardiovascular: Regular rate and rhythm. No pulse deficits. Respiratory: No increased work of breathing, no retractions or nasal flaring. Abdomen/GI: Soft, non-tender Skin: Warm, dry MS/ Extremity: Pulses equal, no cyanosis. + severe deformity of LUE, 3 cm open wound just distal to palpable bony fragment of left humerus. Ipsilateral pulses strong. + ecchymosis and hematoma to left proximal forearm. Neuro: Awake and alert, GCS 15 Vital Signs: 16:20 BP 115 / 48; Pulse 67; Resp 18; Temp 97.6; Pulse Ox 95% on 2 lpm NC; ph 16:22 BP 118 / 57; Pulse 69; Resp 21; Pulse Ox 96% on 2 lpm NC; ld1 17:32 BP 126 / 55; Pulse 63; Resp 18; Pulse Ox 97% on 2 lpm NC; ld1 18:01 BP 129 / 55; Pulse 64; Resp 18; Pulse Ox 100% on 2 lpm NC; ph 18:30 BP 132 / 50; Pulse 69; Resp 18; Temp 97.1; Pulse Ox 100% on R/A; ph 20:00 BP 111 / 46; Pulse 62; Resp 17 S; Pulse Ox 100% on 2 lpm NC; aa9 MDM: 16:18 Patient medically screened. rn 17:20 ED course: Consulted with Dr. Ewing, states does not do open fractures or distal humerus rn fractures, requests patient transferred to [facility]. . 17:30 Differential diagnosis: open fracture. Data reviewed: vital signs, nurses notes, scientific laboratory supervisor test result(s), radiologic studies. 17:30 Counseling: I had a detailed discussion with the patient and/or guardian regarding: the rn historical points, exam findings, and any diagnostic results supporting the discharge/admit diagnosis, radiology results, the need to transfer to another facility, for higher level of care, [facility] does not immediately have the required specialist. Response to treatment: the patient's symptoms have mildly improved after treatment, and as a result, I will admit patient. Admission orders: after a detailed discussion of the patient's condition and case, the admit orders are written by me. 17:52 ED course: Wound cleaned, xeroform placed on wound, pt re-splinted. 2+ radial pulses rn after splinting. Pt seems much more comfortable. . 17:53 ED course: Still waiting on transfer call-back. rn 18:52 ED course: Pulses reevaluated again, strong left radial pulse in current splint.. rn 08/20 16:19 Order name: CBC with Diff; Complete Time: 17:59 rn 08/20 16:19 Order name: Basic Metabolic Panel rn 08/20 16:19 Order name: Protime (+inr) rn 08/20 16:19 Order name: Ptt, Activated rn 08/20 17:18 Order name: Type And Screen rn 08/20 17:23 Order name: SARS RAPID iw 08/20 16:19 Order name: IV Start; Complete Time: 17:29 rn 08/20 16:19 Order name: XRAY Humerus LEFT; Complete Time: 17:59 rn Administered Medications: 17:31 Drug: NS 0.9% 1000 ml Route: IV; Rate: 1000 ml; Site: right forearm; ld1 18:59 Follow up: Response: No adverse reaction; IV Status: Completed infusion; IV Intake: ph 1000ml 17:35 Drug: Ancef (cefazolin) 2 grams Route: IVPB; Infused Over: 30 mins; Site: right ph antecubital; 18:13 Follow up: Response: No adverse reaction; IV Status: Completed infusion ph 17:37 Drug: morphine 2 mg Route: IVP; Infused Over: 4 mins; Site: right antecubital; ph 18:59 Follow up: Response: No adverse reaction ph 17:58 Drug: Zofran (Ondansetron) 4 mg Route: IVP; Site: right antecubital; ph 18:59 Follow up: Response: No adverse reaction ph 18:50 Drug: Tetanus Toxoid,Adsorbed 0.5 ml {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 Exp: 03/17/2024. Lot ph #: [id number]. } Route: IM; Site: right deltoid; 18:59 Follow up: Response: No adverse reaction ph Disposition Summary: 08/20/22 17:31 Transfer Ordered Transfer Location: [facility] rn Reason: Higher level of care rn Condition: Stable rn Problem: new rn Symptoms: have improved rn Accepting Physician: Dr. Angela Clark [facility] ER(08/20/22 20:13) aa9 Diagnosis - Displaced oblique fracture of shaft of humerus, left arm, initial encounter for rn open fracture Forms: - Medication Reconciliation Form rn - SBAR form rn Signatures: Dispatcher [employer] EDCosme Raman MD MD rn Hall, Patricia, RN RN ph Botello, Elizabeth eb Dibbern, Lauren, RN RN ld1 Maddison Godwin RN RN aa9 Corrections: (The following items were deleted from the chart) 17:27 17:22 Unable to obtain ROS due to baseline dementia, rn rn 18:30 17:31 Dr. veronica cotter 20:13 18:30 Dr. Angela Clark [facility] ER eb aa9
--- NOTE | 2022-08-20 17:32 | ER ---
Nurse's Notes [facility] Name: Rahat Montana Age: 82 yrs Sex: Male : 1940 Arrival Date: 08/20/2022 Time: 16:16 Bed 7 Private MD: Diagnosis: Displaced oblique fracture of shaft of humerus, left arm, initial encounter for open fracture Presentation: 08/20 16:20 Chief complaint: EMS states: Pt from [facility], closed fractured to L humerus on Jun ph , has been in [facility] for rehab s/p pneumonia, today the nurse noticed blood on dressing to L arm, noted to have obvious deformity, purple and green bruising, large mount of swelling and a half dollar sized open area wound to bicep w/ what appears to be clotted blood and adipose tissue being forced out d/t swelling. Unknown if pt had fallen, "looked normal yesterday". VSS. Coronavirus screen: Vaccine status: Patient reports receiving the 2nd dose of the covid vaccine. Ebola Screen: No symptoms or risks identified at this time. Initial Sepsis Screen: Does the patient meet any 2 criteria? No. Patient's initial sepsis screen is negative. Does the patient have a suspected source of infection? Yes:. Risk Assessment: Do you want to hurt yourself or someone else? Patient reports no desire to harm self or others. Onset of symptoms was August 20, 2022. 16:20 Method Of Arrival: EMS: [facility] 16:20 Acuity: RACHAEL 2 ph Triage Assessment: 17:07 General: Appears in no apparent distress. uncomfortable, Behavior is calm, cooperative. ph Pain: Complains of pain in left arm. Neuro: Level of Consciousness is awake, alert, obeys commands, Oriented to person, place, situation. Cardiovascular: Patient's skin is warm and dry. Pulses are palpable in right radial artery and left radial artery. Respiratory: Airway is patent Respiratory effort is even, unlabored, Respiratory pattern is regular, symmetrical. Derm: Skin is fragile, is thin, Skin is pale, Wound noted left bicep Wound is half dollar sized open area w/ blood clots and tissue oozing out. Musculoskeletal: Circulation, motion, and sensation intact. Range of motion: limited in lower extremities. Injury Description: Deformity sustained to left arm. Historical: - Allergies: 17:06 No Known Allergies; ph - PMHx: 17:06 Anxiety; CVA; Depression; Hyperlipidemia; ph - Immunization history:: Adult Immunizations unknown. - Social history:: Smoking status: unknown. - Family history:: not pertinent. - Hospitalizations: : No recent hospitalization is reported. Screenin:07 Abuse screen: Denies threats or abuse. Denies injuries from another. Nutritional ph screening: No deficits noted. Tuberculosis screening: No symptoms or risk factors identified. Fall Risk Fall in past 12 months (25 points). Secondary diagnosis (15 points) CVA, IV access (20 points). Ambulatory Aid- None/Bed Rest/Nurse Assist (0 pts). Gait- Impaired (20 pts.). Mental Status- Oriented to own ability (0 pts). Total Cherry Fall Scale indicates High Risk Score (45 or more points). Fall prevention measures have been instituted. Side Rails Up X 2 Placed Close to Nursing Station Family Present and informed to notify staff if the need to leave the bedside As available patient and family educated on Fall Prevention Program and Strategies. Assessment: 17:11 General: SEE TRIAGE ASSESSMENT. ph 18:35 Reassessment: Patient appears in no apparent distress at this time. Patient and/or ph family updated on plan of care and expected duration. Pain level reassessed. Report called to [place] [facility]. 19:00 Reassessment: Patient appears in no apparent distress at this time. Patient and/or ph family updated on plan of care and expected duration. Pain level reassessed. Awaiting EMS for transfer to [facility]. 19:55 General: report provided to [facility] EMT. aa9 Vital Signs: 16:20 BP 115 / 48; Pulse 67; Resp 18; Temp 97.6; Pulse Ox 95% on 2 lpm NC; ph 16:22 BP 118 / 57; Pulse 69; Resp 21; Pulse Ox 96% on 2 lpm NC; ld1 17:32 BP 126 / 55; Pulse 63; Resp 18; Pulse Ox 97% on 2 lpm NC; ld1 18:01 BP 129 / 55; Pulse 64; Resp 18; Pulse Ox 100% on 2 lpm NC; ph 18:30 BP 132 / 50; Pulse 69; Resp 18; Temp 97.1; Pulse Ox 100% on R/A; ph 20:00 BP 111 / 46; Pulse 62; Resp 17 S; Pulse Ox 100% on 2 lpm NC; aa9 ED Course: 16:16 Patient arrived in ED. eb 16:18 Cosme Casillas MD is Attending Physician. rn 17:06 Triage completed. ph 17:09 Ijeoma Voss, RN is Primary Nurse. ph 17:10 Arm band placed on Patient placed in an exam room, on a stretcher. ph 17:10 Patient has correct armband on for positive identification. Placed in gown. Bed in low ph position. Call light in reach. Side rails up X2. Client placed on continuous cardiac and pulse oximetry monitoring. NIBP monitoring applied. Door closed. Noise minimized. Warm blanket given. 17:10 Missed attempt(s): 22 gauge in right forearm. Bleeding controlled, band aid applied, ph catheter tip intact. Missed attempt(s): 22 gauge in right forearm. Bleeding controlled, band aid applied, catheter tip intact. 17:29 Inserted saline lock: 20 gauge in right forearm, using aseptic technique. ld1 17:29 Type And Screen Sent. ld1 17:30 XRAY Humerus LEFT In Process Unspecified. EDMS 17:32 SARS RAPID Sent. ld1 17:45 Dressings: Vaseline gauze X 1; left bicep. Kyle wrap to L arm, original posterior long ph arm splint in place, wrspped w/ kyle wrap. 17:55 initiated a transfer with Erin Vizcaino Rn from the [facility]. eb 18:19 administrative approval given by Erin Vizcaino Rn/ patient has been accepted to [facility] ER/ Dr. Angela Clark has accepted the patient in transfer without conference with Dr. Casillas/ report to be called to [phone]. 18:31 [facility] called/ they should be here around 2000/. eb 20:10 No provider procedures requiring assistance completed. Patient transferred, IV remains aa9 in place. Administered Medications: 17:31 Drug: NS 0.9% 1000 ml Route: IV; Rate: 1000 ml; Site: right forearm; ld1 18:59 Follow up: Response: No adverse reaction; IV Status: Completed infusion; IV Intake: ph 1000ml 17:35 Drug: Ancef (cefazolin) 2 grams Route: IVPB; Infused Over: 30 mins; Site: right ph antecubital; 18:13 Follow up: Response: No adverse reaction; IV Status: Completed infusion ph 17:37 Drug: morphine 2 mg Route: IVP; Infused Over: 4 mins; Site: right antecubital; ph 18:59 Follow up: Response: No adverse reaction ph 17:58 Drug: Zofran (Ondansetron) 4 mg Route: IVP; Site: right antecubital; ph 18:59 Follow up: Response: No adverse reaction ph 18:50 Drug: Tetanus Toxoid,Adsorbed 0.5 ml {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 Lot ph #: [id number]. } Route: IM; Site: right deltoid; 18:59 Follow up: Response: No adverse reaction ph Medication: 19:01 Vaccine Information Statement (VIS) provided today. Questions and/or concerns ph addressed. VIS edition date: June 2021. Intake: 18:59 IV: 1000ml; Total: 1000ml. ph Outcome: 17:31 ER care complete, transfer ordered by . rn 20:10 Transferred [facility]. to [facility], Transfer form completed. aa9 20:10 Condition: stable 20:10 Instructed on the need for transfer. 20:13 Patient left the ED. aa9 Signatures: Dispatcher [employer] EDMS Cosme Casillas MD MD rn Hall, Patricia, RN RN ph Botello, Elizabeth eb Dibbern, Lauren, RN RN ld1 Maddison Godwin RN RN aa9
--- NOTE | 2022-08-20 17:37 | RAD REPORT ---
EXAM DESCRIPTION: RAD - Humerus Left - 08/20/2022 5:29 pm CLINICAL HISTORY: DEFORMITY COMPARISON: Shoulder Left 2 View dated 09/15/2021 FINDINGS/IMPRESSION: Remote left proximal humerus fracture. Displaced, angulated, and foreshortened left mid humerus fracture which demonstrates over 11 cm of foreshortening. The fracture lines are les s sharp than expected for an acute fracture. The fracture may be subacute.
[2022-08-20 17:43] LABS: Absolute Lymphocytes (CBC) 1.7 K/uL (0.7-4.9); Hematocrit 28.4 % (39.6-49.0); Lymphocytes % 12.3 % (15.3-44.8); MCV 95.9 fL (80-100); MPV 9.1 fL (7.6-11.3); RBC Red Blood Cell Count 2.97 M/uL (4.33-5.43)
[2022-08-20 18:03] LABS: Protime INR 1.49
[2022-08-20 18:08] LABS: Potassium 3.9 mmol/L (3.5-5.1)
[2022-08-20 18:15] LABS: SARS-CoV-2 Antigen Rapid Res Negative (Negative)
[2022-08-20] MEDS ORDERED: TETANUS & DIPHTHERIA TOX,ADULT 0.5 ML VIAL ONE (18:33)
[2022-08-20 20:21] VITALS: O2SAT 100
[2022-08-20 20:22] VITALS: TEMP 97.1
[2022-08-20 20:24] VITALS: BP 111/46
== END 2022-08-20 20:13 | disposition short-term general hospital (02) ==
LOC: ER 16:11
PROC: 2W3BX1Z Immobilization of Left Upper Arm using Splint (ICD-10-PCS; principal; 2022-08-20)
DX: S42.332G Displaced oblique fracture of shaft of humerus, left arm, subsequent encounter for fracture with delayed healing (principal); Z23 Encounter for immunization; Z86.73 Personal history of transient ischemic attack (TIA), and cerebral infarction without residual deficits
CPT/HCPCS: 96365; 96361; 85025; 80048; 36415; 86900; 86850; 85610; 86901; 85730; 73060; 90471; 90714; 96375; 99285; 87811; 29105; J7030; J2405; J0690